=== PATIENT | male | born 1965 | race Hispanic/Latino ===

== ENCOUNTER 2020-10-05 18:06 | Inpatient (IN) | payer OTHER, SELFPAY ==
[~2020-10-05 18:06] MED LIST: Iopamidol-370 76% 500 ML 1 ML ONE
--- NOTE | 2020-10-05 18:38 | CT ---
Head CT without contrast 10/05/2020: Comparison: None HISTORY: Fall, trauma, pain TECHNIQUE: Axial CT imaging at 5 mm intervals from vertex through skull base without contrast FINDINGS: There is extensive multifocal prominent scalp swelling/scalp hematoma at the vertex extendi ng laterally on the right and anteriorly on the left and the right, most prominent in the left frontal region near the vertex. There is no intracranial hemorrhage evident on this examination. No midline shift or mass effect. No displaced calvarial fracture. IMPRESSION: Extensive prominent scalp hematoma with no associated fracture or intracranial hemorrhage . Results called to Dr. Coelho at 6:36 PM 10/05/2020
[2020-10-05 18:39] LABS: Hemoglobin 14.2 g/dL (14.0-18.0); Mean Corpuscular HGB CONC 34.7 g/dL (32.0-36.0); Mean Corpuscular Hemoglobin 31.6 pg (27.0-31.0); Mean Corpuscular Volume 91.2 fL (78.0-98.0); Mean Platelet Volume 6.5 fL (7.4-10.4); Platelet Count 277 thou/uL (130-400); RBC Distribution Width 11.4 % (11.5-14.5); Red Blood Cell (RBC) Count 4.51 mill/uL (4.70-6.10); White Blood Cell (WBC) Count 21.6 thou/uL (4.8-10.8)
[2020-10-05 18:41] LABS: INR-International Normal Ratio 1.1; PTT 23.9 sec (22.9-36.1)
--- NOTE | 2020-10-05 18:50 | CT ---
CT of thecervical spine: 10/05/2020 COMPARISON:None available HISTORY:Fall, trauma, pain TECHNIQUE: Serial axial CT imaging at2.5 mm intervals from theskull base through the lung apices with out contrast. Coronal and sagittal reformatted imaging obtained Findings:There is soft tissue density posterior to the trachea and esophagus within the superior medi astinum, only partially visualized on this examination, suggesting mediastinal hematoma. Partially visualized left clavicle demonstrates a fracture of the left clavicular head. Lobulated soft tissue d ensity is noted in the left lung apex suggesting pleural-based hemorrhage. Bilateral first rib fractures are noted. A medial left second rib fracture is suspected as well. The dens, occipital condyles, C1-2 articulation, craniocervical junction, and atlantoaxial interspace demonstrate no acute findings. No anterolisthesis or retrolisthesis is seen within the cervical spine. There is prominent anterior o steophyte formation at C4-5 and C6-7. There is an obliquely oriented nondisplaced fracture involving the spinous process at the T3 level. There is an obliquely oriented and distracted spinous process fracture at the C7 level and the T1 level with 1.8 cm and 1.6 cm of posterior distraction respectively. Imaged portions of the paranasal sinuses and mastoid air cells appear well-aerated. The C1 ring appea rs intact. There is mild superior endplate irregularity involving C7 which could signify acute fracture. There is a mild anterior wedge compression fracture of the T2 vertebral body. Impression:Findings suggesting a mediastinal hematoma. Dedicated chest CT advised. There are fractures involving the spinous processes at the C7, T1, and T3 levels. There is a question able mild superior endplate fracture of C7 and there is an anterior wedge compression fracture with mild loss of vertebral body height anteriorly at the T2 level. There is a fracture of the left clavicular head as well as bilateral first rib fractures and a left s econd rib fracture. Results called to Dr. Coelho at 6:47 PM 10/05/2020
--- NOTE | 2020-10-05 18:53 | CT ---
CT of thefacial bones: 10/05/2020 COMPARISON:None available HISTORY:Injury, trauma, pain TECHNIQUE: Serial axial CT imaging at2.5 mm intervals from thesupraorbital region through the mandibl e without contrast. Coronal and sagittal reformatted imaging obtained Findings:There is degenerative change at the atlantoaxial interspace. There is corticated osseous fra gmentation at the tip of the clivus, likely related to degenerative change. There is extensive multifocal superior scalp swelling, incompletely imaged on this examination. The nasal bones, zygomatic arches, and pterygoid plates appear intact. The temporomandibular joints and the mandible demonstrate no acute findings. The orbital floor and the medial orbital wall appears intact bilaterally. No acute maxillofacial bone fracture is seen. Impression:No maxillofacial bone fracture noted. Results called to Dr. Coelho at 6:50 PM 10/05/2020
[2020-10-05 18:54] LABS: ALT (SGPT) 27 U/L (8-55); AST (SGOT) 37 U/L (5-34); Albumin 3.7 g/dL (3.5-5.0); Alkaline Phosphatase 88 U/L (40-110); Anion Gap 16 mmol/L (10-20); BUN (Urea Nitrogen) 15 mg/dL (8.4-25.7); Bilirubin, Total 0.5 mg/dL (0.2-1.2); Calc. Creatinine Clearance 0 mL/min (70-130); Calcium 8.2 mg/dL (7.8-10.44); Carbon Dioxide 21 mmol/L (22-29); Chloride 106 mmol/L (98-107); Estimated GFR-MDRD 83; Glucose 143 mg/dL (70-105); Lipase 24 U/L (8-78); Potassium 3.5 mmol/L (3.5-5.1); Protein, Total 6.7 g/dL (6.0-8.3); Sodium 139 mmol/L (136-145)
[2020-10-05 19:02] LABS: Band 29 % (5-11); Eosinophils 3 % (0-10); Lymphocytes 5 % (21-51); MDiff Complete? YES; Monocytes 8 % (0-10); Neutrophil 51 % (42-75); Platelet Morphology Comment Appears Adequate; RBC Morphology Normal; Reactive Lymphocytes 4 % (0-10)
--- NOTE | 2020-10-05 19:07 | CT ---
CT angiogram of the neck: 10/05/2020 COMPARISON: None HISTORY: Injury, trauma, pain TECHNIQUE: Axial CT imaging at 1.25 mm intervals from the lung apices through the skull base with IV contrast using a CT angiogram protocol. Coronal and sagittal 3-D reformatted imaging obtained. FINDINGS: The visualized lung apices demonstrate lobulated pleural-based density bilaterally suggesti ng pleural-based hemorrhage, left greater than right. There is a mildly displaced comminuted manubrial fracture with hematoma anterior and posterior to the fractured manubrium. Rib fractures on the right include the medial first rib and the anterolateral aspect of the third rib . There is a medial left first rib fracture. A left subtle second rib fracture is suspected. There are distracted fractures involving the C7 and T1 spinous processes. Incompletely evaluated spin ous process fractures are noted at the T3 and T4 levels. There is a comminuted fracture involving the T5 vertebral body with acute bilateral fractures of the pars intraarticularis. There is posterior osteophyte formation at the T5-6 level. A comminuted T6 fracture is noted, not fully visualized on this examination. There is extensive associated posterior mediastinal hematoma from the axial level of the T6 vertebral body through the axial level of the thoracic inlet. The visualized portions of the ascending aorta, the aortic arch, and the imaged portions of the desce nding thoracic aorta demonstrate no evidence for acute arterial injury. The origin of the left subclavian artery, left common carotid artery, innominate artery, right subclavian artery, and right common carotid artery appear unremarkable. Bilateral vertebral arteries are patent. On the basis of NASCET criteria there is no hemodynamically significant stenosis involving the caroti d or vertebral system on either side. The retroantral fat, the parapharyngeal fat, the parotid glands, and the submandibular glands appear grossly unremarkable. Region of the tonsillar pillars, epiglottis and preepiglottic fat, hyoid bone, thyroid cartilage, cri coid cartilage, and thyroid gland appear unremarkable. There is a comminuted fracture involving the head of the clavicle on the left. Mild superior endplate irregularity at C7 could represent a subtle fracture. Anterior wedge compression fracture with minimal loss of vertebral body heights suspected at the T2 level. IMPRESSION: Extensive spinal fractures which include a probable superior endplate C7 fracture, multip le spinous process fractures including C7, T1, T3, T4, as well as vertebral body fractures at T1, T5, and T6. The T5 fractures extend into the bilateral pars intraarticularis. There are rib fractures seen bilaterally as well as a manubrial fracture and a left clavicle fracture. Dedicated chest CT is advised. There is extensive posterior mediastinal hematoma. No acute arterial abnormality is seen within the neck. Results were called to Dr. Coelho at 7:00 PM 10/05/2020
[2020-10-05] MEDS ORDERED: Fentanyl 100 MCG/2 ML VIAL ONE (19:08)
[2020-10-05] MEDS ORDERED: Ondansetron PF 4 MG/2 ML Vial ONE (19:08)
[2020-10-05] MEDS ORDERED: Boostrix 0.5 ML (Tdap) VIAL ONE (19:08)
--- NOTE | 2020-10-05 19:40 | RAD ---
Frontal radiograph pelvis: 10/05/2020 COMPARISON: None HISTORY: Fall, trauma, pain FINDINGS: Moderate degenerative changes seen involving bilateral hips, left greater than right. The p elvic ring appears intact. The femoral heads project normally over the respective acetabulum. There is no widening of the sacroiliac joints or the pubic symphysis. No displaced fracture is appreciated. Osseous structures of the pelvis are better assessed on dedicat ed CT examination also performed 10/05/2020 IMPRESSION: No displaced fracture seen.
--- NOTE | 2020-10-05 19:45 | RAD ---
Portable frontal chest radiograph: 10/05/2020 COMPARISON: CT of 10/05/2020 HISTORY: Injury, trauma, pain FINDINGS: There is a fracture involving the head of the clavicle on the left. Bilateral first rib fra ctures are noted. There is lobulated soft tissue density in the left lung apex consistent with hematoma. Widening of the mediastinum is noted, consistent with mediastinal hematoma. Multiple thorac ic spine fractures are present, difficult to accurately evaluate on this examination. Please see CT examination of the chest for further assessment. IMPRESSION: Widened mediastinum with evidence of mediastinal hematoma. Pleural-based hemorrhage in th e left lung apex. Left clavicular head fracture and bilateral rib fractures as detailed above. There are numerous spinal fractures present, difficult to appreciate on this examination. Please refe r to CT examination also performed 10/05/2020
--- NOTE | 2020-10-05 19:45 | CT ---
CT CHEST WITH IV CONTRAST CT ABDOMEN AND PELVIS WITH IV CONTRAST CT THORACIC SPINE NONCONTRAST CT LUMBAR SPINE NONCONTRAST 10/05/20 HISTORY: Fall. Chest injury. Abdomen injury. Back injury. FINDINGS: Very tiny amount of pleural gas at the far anterior aspect of each hemithorax. There is mild atelecta sis and contusion at the dependent portion of each lung and minimal left pleural fluid. Vascular stru ctures are intact. Solid organs of the abdomen are intact. Urinary bladder is unremarkable. Nondisplaced fractures involve the sternomanubrium and sternal body with a small amount of heterogene ous fluid posterior to the sternum consistent with a small anterior mediastinal hematoma. Large area of heterogeneous fluid density surrounding and anterior to the mid thoracic vertebral fractures has t he appearance of a posterior mediastinal hematoma that effaces the posterior aspect of the esophagus. It is 6.0 cm length x 5.9 cm width x 2.1 cm depth. There is prominent dilatation of the right renal collecting system and pelvis with decompression of t he ureter. Thinning of the renal cortex. Two stones at the superior pole dilated calyx are each 0.8 c m diameter. This has the appearance of a chronic UPJ obstruction. Obstructing stone not evident. Burst fracture of the T5 vertebral body is present with multiple planes. There is extension through t he posterior elements, primarily the superior facets, with minimal anterior translation. Prominent po sterior osteophyte/disc complex is also present at the T5-6 level. There is slight compromise of the central spinal canal by approximately 30%. Burst fracture of the T6 vertebral body is also present wi th loss of height by approximately 10%. This fracture does not extend into the posterior elements. Di splaced spinous process fractures also involve C7, T1, T3, and T4. Nondisplaced comminuted fracture of the left clavicular head is present. Fractures involve the medial bases of each first rib. Fractures also involve the posterolateral aspect of right ribs 3 and 4 and the anterolateral aspect of right ribs 3 and 4. Large osteoma projects anteriorly from right rib 7. M inimally displaced fractures involve the anterolateral aspect of left ribs 5 and 6. Minimally displac ed fractures of the left transverse process of T5 and each transverse process of T6. IMPRESSION: Unstable burst fractures of T5 and T6 with mild kyphotic angulation indicative of instability. Extens ion of the T5 fracture through the superior facets with mild displacement. Mild compromise of the giuseppe tral spinal canal. Extensive additional fractures of spinous processes, sternum, left clavicle, and r ibs as detailed above. Tiny bilateral pneumothoraces. No other unstable spinal injury is apparent. No acute intra-abdominal injury is apparent. Right renal stones with chronic appearing right hydronephrosis, possibly related to chronic UPJ obstr uction. Anterior and posterior mediastinal hematomas associated with the sternal and spinal fractures as deta iled above. Findings were discussed with Dr. Coelho in the Emergency Department at 1908 hours. Code CR POS: BST
--- NOTE | 2020-10-05 21:12 | HP ---
REQUESTING PHYSICIAN: Dr. Coelho. ATTENDING SURGEON: Dr. Monsalve. CONSULTATIONS: Neurosurgery, Dr. Pierce. HISTORY OF PRESENT ILLNESS: The patient is a 55-year-old man, who was brought here by air ambulance after falling [place] onto his head. It is unclear if he had a loss of consciousness, but bystanders and the patient report that he was unable to move his legs initially. By the time he reached the emergency department, he was moving all 4 extremities, upper extremities greater than lower extremities. The patient denied nausea or any syncopal events. The patient was a level 2 trauma activation. He underwent evaluation and examination, was noted to have multiple compression fractures of his spinal column. The patient was evaluated in the emergency department by Gabi Hung of Neurosurgery. She has ordered MRI to further evaluate his injuries. The patient has maintained stable vitals and Waldorf Coma Scale of 15. ALLERGIES: NONE. CURRENT MEDICATIONS: None. PAST MEDICAL HISTORY: None. PAST SURGICAL HISTORY: None. 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 He denies drug, tobacco, or alcohol use. REVIEW OF SYSTEMS: 10-point review of systems is negative as otherwise stated. PHYSICAL EXAMINATION: VITAL SIGNS: Blood pressure 113/69, heart rate 82, respirations 24, oxygen saturation is 95% on 2 L via nasal cannula, and temperature is 97.6. GENERAL: The patient is resting comfortably in bed. He is awake, conversant, appropriate. Bambi Coma Scale is 15. HEENT: The patient has contusion noted to the left forehead and occiput with abrasions noted. Eyes, extraocular motion intact. PERRLA bilaterally. Ears are atraumatic without discharge. Nose is atraumatic without discharge. Oropharynx is clear. NECK: Tender to the midline from C5-T1. He is immobilized in a pre-hospital collar that is being exchanged for an Underwood collar. His trachea is midline. No JVD. CHEST: Clear to auscultation with good inspiratory and expiratory effort, but he does complain of mid back pain with deep inspiration. HEART: Regular rate and rhythm. ABDOMEN: Soft, flat, nontender with active bowel sounds. PELVIS: Stable. EXTREMITIES: Neurovascularly intact x4. The patient has abrasions noted to the left upper extremity. BACK: By report is tender to palpation from approximately T1 through T8 in the midline. LABORATORY FINDINGS: White blood cell count 21.6, hemoglobin 14.2, hematocrit 41.1, platelets 277. Sodium 139, potassium 3.5, chloride 106, CO2 of 21, BUN 15, creatinine 0.94, glucose 143. Lactic acid 2.5. LFTs are unremarkable. Lipase 24. INR 1.1. RADIOGRAPHS: CT of the brain without contrast show extensive prominent scalp hematoma with no associated fracture or intracranial hemorrhage. CT of the C-spine without contrast shows findings suggestive of a mediastinal hematoma. Fractures involving the spinous process of C7, T1 and T3. Mild endplate fracture of C7 and T2. There is also noted to be a fracture of the left clavicular head as well as bilateral 1st ribs and left 2nd rib fractures. CT of the facial bones without contrast shows no maxillofacial bone fractures. CTA of the neck again demonstrates the spinous process fractures, the previous rib fractures, manubrial fracture, left clavicle fracture, mediastinal hematoma, T5 burst fracture. There are no acute arterial abnormality seen within the neck. CT of the chest, abdomen, and pelvis show an unstable burst fracture of T5 and T6 with mild kyphotic angulation indicative of instability. There are tiny bilateral pneumothoraces and again noted the mediastinal hematoma. AP pelvis shows no displaced fracture. ASSESSMENT AND PLAN: 1. Status post fall from roof, level 2 trauma activation. 2. Spinous process fractures of C7, T1, and T3. 3. Compression fractures of C7 and T2. 4. Bilateral pneumothoraces. 5. Bilateral 1st rib fractures. 6. Left clavicular head fracture. 7. Burst fractures of T5 and T6. 8. Multiple contusions and abrasions. PLAN: Plan will be to admit the patient to the [facility] for close observation. He will undergo MRI. This evening, he will be fitted with a [employer] brace per Neurosurgery. We will keep him n.p.o. while he is laying flat. We will continue spinal precautions until he is fitted with his brace. He will have pain control, pulmonary toilet, gastritis and mechanical VTE prophylaxis. Repeat labs in the morning. Begin physical and occupational therapy. The evaluation, examination, laboratory, and radiographic findings will be discussed with Dr. Monsalve after this dictation. Job ID: [id number]
[2020-10-05] MEDS ORDERED: Dextrose 50% Abboject 50 ML SYRINGE SLOW IVP PRN (21:37)
[2020-10-05] MEDS ORDERED: Ondansetron ODT 4 MG TAB PO PRN (21:37)
[2020-10-05] MEDS ORDERED: Dextrose 5% in Water 1,000 ML IV PRN (21:37)
[2020-10-05] MEDS ORDERED: traMADol HCl 50 MG TAB PO PRN ×2 (21:37)
[2020-10-05] MEDS ORDERED: Ondansetron PF 4 MG/2 ML Vial IVP PRN (21:37)
[2020-10-05] MEDS: Morphine 2 MG/ML VIAL SLOW IVP PRN (22:03)
--- NOTE | 2020-10-05 23:37 | MRI ---
MRI of thecervical spine: 10/05/2020 COMPARISON:None available HISTORY:Injury, trauma, pain TECHNIQUE: Multiplanar multisequence MR imaging of thecervical spine without contrast Findings:The sagittal STIR imaging demonstrates abnormal increased T2 signal involving the posterior paraspinal soft tissues between the spinous processes at the C1-2 level, and the C2-3 level, consistent with ligamentous disruption. Similarly, posterior to the spinous processes is extensive ab normal increased T2 signal throughout the cervical spine consistent with extensive ligamentous injury and extensive posterior muscle tear/disruption from the axial level of the occiput to the axia l level of the cervicothoracic junction. There are fracture deformities involving the C7 and T1 spinous processes. There is abnormal increased STIR signal within the prevertebral space anterior to the C1, C2, and C3 vertebral bodies as well as anterior to the C7, T1, T2, and T3 vertebral bodies. Prevertebral soft tissue increased STIR signal mentioned above suggest ligamentous disruption. This c ould be the result of fluid tracking up from the thoracic region. There is no definitive evidence for an acute fracture involving the C2-C7 vertebral bodies. There is vague increased T2 signal within the T1, T2, and T3 vertebral body suggesting areas of fracture. Fracture deformities are better assessed on recent CT. C2-3: No significant central canal or neural foraminal stenosis. C3-4: There is disc space narrowing with disc desiccation and mild disc bulge. There is mild central canal stenosis. No significant neural foraminal stenosis. C4-5: There is disc space narrowing and mild posterior osteophyte. Anterior osteophyte is noted. No s ignificant central canal or neural foraminal stenosis. C5-6: There is disc space narrowing with disc desiccation. There is mild disc bulge with a small cent ral disc protrusion causing mild central canal stenosis. No significant neural foraminal stenosis. C6-7: There is disc space narrowing with disc desiccation. There is anterior osteophyte formation. No significant neural foraminal stenosis or central canal stenosis. C7-T1: There is disc space narrowing with disc desiccation and disc bulge causing at least mild centr al canal stenosis. Mild bilateral neural foraminal stenosis. Within the cervical cord there is no focal area of abnormal signal intensity. IMPRESSION: Fracture deformities of the cervical and thoracic spine as detailed above, better assesse d on recent CT exam. No focal area of abnormal signal intensity is identified within the cervical cord. There is extensive severe posterior ligamentous injury from the occiput through the upper thora cic spine with extensive posterior muscle injury. There is prominent prevertebral fluid suggesting ligamentous injury, a degree of which is likely tracking up from the thoracic spine.
--- NOTE | 2020-10-05 23:51 | MRI ---
MRI of the thoracic spine: 10/05/2020 HISTORY: Injury, trauma, pain TECHNIQUE: Multiplanar multisequence MR imaging of the thoracic spine obtained without contrast FINDINGS: The sagittal STIR imaging demonstrates extensive posterior ligamentous injury involving the interspinous ligaments and the posterior paraspinal musculature from the C6-7 level through the T7 level. There are patchy areas of increased STIR signal within the T1, T2, T3, and T4 vertebral bodies consistent with fractures with out significant loss of vertebral body height. Comminuted fractures with a mild to moderate degree of vertebral body height loss are noted at T5 and T6, better assessed on recent CT examination. Fractures are seen involving the spinous processes at the C7 level, T1 level, T3 level, T4 level, and T5 level. Fractures involve bilateral pars interarticularis at T5. Please refer to the CT examination for better assessment of the fracture deformities. Hydronephrosis with associated calcifications are seen involving the right kidney, better assessed on recent CT as well. Extensive posterior mediastinal hematoma is noted from the thoracic inlet through the axial level of the T6 vertebral body. Pleural-based hemorrhage noted within the left lung apex. T1-2: Mild bilateral neural foraminal stenosis and mild central canal stenosis. T2-3: No significant central canal or neural foraminal stenosis T3-4: No significant central canal or neural foraminal stenosis T4-5: Facet hypertrophy leads to bilateral neural foraminal stenosis. There is mild disc space narrow ing with no significant central canal stenosis. T5-6: There is disc space narrowing with prominent posterior osteophyte. Severe fracture deformities are noted involving the T5 and T6 vertebral bodies. Severe central canal stenosis is noted. There is significant bilateral neural foraminal stenosis. T6-7: Mild bilateral neural foraminal stenosis and central canal stenosis T7-8: Anterior osteophyte formation. No significant central canal or neural foraminal stenosis T8-9: No significant central canal or neural foraminal stenosis T9-10: No significant central canal or neural foraminal stenosis T10-11: No significant central canal or neural foraminal stenosis T11-12: No significant central canal or neural foraminal stenosis T12-L1: No significant central canal or neural foraminal stenosis. Bilateral pleural effusions noted. There is a focal area of abnormal increased T2 signal intensity within the thoracic cord at the T5-6 level secondary to acute cord contusion. No obvious hemorrhage is seen on sagittal gradient echo imaging. IMPRESSION: Extensive fracture deformities involving the thoracic spine, most severe at the T5 and T6 levels, better assessed on recent CT. There is severe central canal stenosis at the T5-6 level with a focal area of increased T2 signal within the thoracic cord consistent with an acute thoracic c ord injury. Extensive posterior ligamentous and muscular injury.
--- NOTE | 2020-10-06 00:08 | MRI ---
MR the lumbar spine without contrast: 10/06/2020 History: Injury, trauma, pain COMPARISON: None. TECHNIQUE: Multiplanar multisequence MR images were obtained of lumbar spine without IV contrast FINDINGS: On the basis of 5 lumbar type vertebral bodies, conus medullaris terminates at uyxP50-L5 level. Sagittal STIR imaging demonstrates no focal area of osseous marrow edema. T12-L1:Intervertebral disc height and signal intensity appears within normal limits with no significa nt central canal or neural foraminal stenosis L1-2:Intervertebral disc height and signal intensity within normal limits. No significant central can al or neural foraminal stenosis. L2-3:Mild bilateral facet hypertrophy. No significant central canal or neural foraminal stenosis. L3-4:Minimal disc bulge with very small right paracentral disc protrusion. Mild anterior osteophyte f ormation. Disc desiccation. No significant central canal or neural foraminal stenosis. L4-5:There is disc space narrowing and disc desiccation with disc bulge. Mild bilateral facet hypertr ophy. Mild bilateral neural foraminal stenosis. Mild central canal stenosis. L5-S1:There is a central annular tear. No significant central canal stenosis. Mild bilateral facet hy pertrophy with no significant neural foraminal stenosis. Image retroperitoneal structures demonstrateno acute findings. The urinary bladder is distended.. IMPRESSION: Degenerative changes within the lumbar spine as detailed above. No evidence for acute lumbar spine fr acture.
[2020-10-06] MEDS: Sodium Chloride 0.9% 1,000 ML IV SCH ×2 (00:10→09:53)
--- NOTE | 2020-10-06 00:17 | CON ---
DATE OF CONSULTATION: 10/05/2020 HISTORY OF PRESENT ILLNESS: The patient is a 55-year-old male, who presented per [facility] after he fell off a ladder while attempting to clean the gutters on his one-story home. Report per EMS was that he initially lost sensation feeling to both his lower extremities. By the time he had arrived to the emergency department, he was wiggling his toes a little bit and reports he had normal sensation. He was complaining of some pain to the neck. Trauma scans were done which were notable for multiple cervical and thoracic fractures. He had spinous process fractures at C7, T1, T3, and T4 and mild compression fracture at C7, a T1 vertebral body fracture and a T5 and T6 burst fracture. I visited with the patient in the ER and during his course here, he began to have improvement in his lower leg mobility. He began moving the left leg without any difficulty and only had some remaining right proximal leg weakness which was mild. He continued to report normal sensation and had good strength and sensation in bilateral upper extremities. He had several other injuries including multiple rib fractures as well as bilateral small pneumothoraces. He was evaluated by the Trauma Team as well. PAST MEDICAL HISTORY: Patient denied any past medical history or past surgical history. SOCIAL HISTORY: He lives at home. He does not smoke, drink, or use any drugs. REVIEW OF SYSTEMS: Per HPI. PHYSICAL EXAMINATION: VITAL SIGNS: BP is 113/69, pulse is 82, he is 95% on 2 L, temperature is 97.6. CONSTITUTIONAL: Awake, alert, and oriented x3, in no acute distress. HEENT: Head, he has hematoma along the right side of the scalp. There is a small contusion over the right brow and forehead. Eyes, PERRLA. Extraocular movements intact. ENT, pink, intact, moist. He has normal voice. NECK: He has some tenderness over the lower cervical spine and we transitioned him to an [place] collar. RESPIRATORY: Symmetric chest expansion. No evidence of dyspnea. CARDIOVASCULAR: Regular rate and rhythm. MUSCULOSKELETAL: No obvious deformity. In the upper extremities, he has free active range of motion of all extremities. No focal motor weakness. Symmetric pulses. In the lower extremities, he had good strength and range of motion in the left lower extremity. Some slight proximal leg weakness in the right lower extremity. Sensation intact to light touch. Symmetric pulses. NEUROLOGIC: A and O x4. Some weakness noticed in the right lower extremity as noted above. ASSESSMENT AND PLAN: This is a 55-year-old male with a fall approximately one story height with multiple cervical and thoracic fractures, who has had initially bilateral leg weakness and sensation changes, but this is improved and now only some proximal right leg weakness. We will go ahead and move forward with MRI of the CT and L-spine to assess further. He has been admitted by the Trauma Team. He should be kept on strict spinal precautions until a SKIN WASHER brace has been fitted by [facility]. I will follow his new imaging closely and discuss this plan with Dr. Pierce. Job ID: [id number]
[2020-10-06] MEDS: Morphine 2 MG/ML VIAL SLOW IVP PRN (03:06)
[2020-10-06] MEDS: Ibuprofen 800 MG TAB PO SCH ×4 (03:08→20:56)
[2020-10-06] MEDS: Famotidine 20 MG TAB PO SCH ×3 (03:08→20:56)
[2020-10-06] MEDS: Acetaminophen 500 MG TAB PO SCH ×5 (03:08→20:56)
[2020-10-06 03:29] LABS: SARS-CoV-2 MS2 Positive; SARS-CoV-2 N Gene Negative; SARS-CoV-2 S Gene Negative; SARS-CoV-2 by NAA Not Detected (NotDetected); SARS-CoV-2 orf1ab Negative
[2020-10-06 06:46] LABS: #Monocytes 0.9 thou/uL (0.11-0.59); #Neutrophils 12.8 thou/uL (1.40-6.50); %Basophils 0.1 % (0.0-1.0); %Eosinophils 0.1 % (0.0-10.0); %Monocytes 6.1 % (0.0-10.0); %Neutrophils 86.6 % (42.0-75.0); Hemoglobin 12.8 g/dL (14.0-18.0); Mean Corpuscular HGB CONC 35.2 g/dL (32.0-36.0); Mean Corpuscular Hemoglobin 32.2 pg (27.0-31.0); Mean Corpuscular Volume 91.4 fL (78.0-98.0); Mean Platelet Volume 6.7 fL (7.4-10.4); Platelet Count 247 thou/uL (130-400); RBC Distribution Width 11.6 % (11.5-14.5); Red Blood Cell (RBC) Count 3.98 mill/uL (4.70-6.10); White Blood Cell (WBC) Count 14.7 thou/uL (4.8-10.8)
[2020-10-06 06:56] LABS: Phosphorus 4.1 mg/dL (2.3-4.7)
[2020-10-06 06:58] LABS: Anion Gap 16 mmol/L (10-20); BUN (Urea Nitrogen) 20 mg/dL (8.4-25.7); Calc. Creatinine Clearance 82 mL/min (70-130); Calcium 8.2 mg/dL (7.8-10.44); Carbon Dioxide 22 mmol/L (22-29); Chloride 106 mmol/L (98-107); Estimated GFR-MDRD 71; Glucose 201 mg/dL (70-105); Magnesium 2.3 mg/dL (1.6-2.6); Potassium 4.2 mmol/L (3.5-5.1); Sodium 140 mmol/L (136-145)
--- NOTE | 2020-10-06 08:31 | RAD ---
Chest one view HISTORY: Trauma. Follow-up. COMPARISON: CT 10/05/2020. FINDINGS: Cardiac silhouette is magnified by projection. Pulmonary vasculature are within normal limi ts. Mediastinum is midline. Slight widening of the upper mediastinum may be related to hematomas on recen t CT. No lobar consolidation or evidence of pneumothorax. Fractures of the left clavicular head and ribs correlate with findings on recent CT. Thoracic spine b urst fractures not well visualized. Metallic density within the left cardiac margin could represent extrinsic artifact. Density over the right upper quadrant may represent: Content. IMPRESSION : Stable posttraumatic findings of the chest. No evidence of pneumothorax.
--- NOTE | 2020-10-06 09:55 | CON ---
DATE OF CONSULTATION: 10/06/2020 HISTORY OF PRESENT ILLNESS: The patient is a 55-year-old male who fell one [place] onto his head and states that he immediately after the injury was unable to move his legs, but by the time he reached the emergency room, he was able to move all four extremities. The patient had x-rays and CAT scans performed. He has burst fracture and a thoracic spine at T5 and T6, has compression fractures at C7 and T1, spinous process fractures of C7, T1 and T3. Bilateral pneumothorax, bilateral first rib fractures, left proximal clavicle fracture with sternal fracture. I was consulted for evaluation and recommended treatment for the proximal left clavicle fracture. PAST MEDICAL HISTORY: None. ALLERGIES: NONE. CURRENT MEDICATIONS: None. PAST SURGICAL HISTORY: None. 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 He denies drug, alcohol, or tobacco use. PHYSICAL EXAMINATION: Patient has tenderness in the proximal left clavicular and sternal region. Upper extremities are neurovascularly intact. I reviewed the x-rays and the patient has nondisplaced fractures of the proximal left clavicle and nondisplaced fracture of the sternum. PLAN: No surgical intervention is needed for these fractures. They will just be allowed to heal. I will be happy to follow the patient as indicated. Job ID: [id number]
[2020-10-06] MEDS ORDERED: Dexamethasone 10 MG/ML VIAL SLOW IVP SCH (10:30)
--- NOTE | 2020-10-06 10:55 | PRG ---
DATE OF SERVICE: 10/06/2020 The patient seen and examined. I agree with Gabi Hung's evaluation on 10/05/2020. The patient is a 55-year-old man, who fell from a ladder. He immediately complained of mid back pain as well as inability to move his legs. The leg function recovered fairly rapidly. Currently, he is alert and interactive. His left leg strength is normal and sensation subjectively normal. In the right leg, he has reasonably good strength, although it takes some slightly longer to initiate. He reports a subjective diminishment of sensation in the right leg. CT and MRI of the cervical and thoracic spines were reviewed. He has fairly extensive injuries. He has multiple cervical thoracic spinous process fractures and fairly dramatic ligamentous disruption posteriorly. He has some preexisting cervical stenosis. In the thoracic spine, he has meaningful T5 and T6 burst fractures. There is a subtle amount of canal compromise anteriorly from predominantly disk material at T5-T6, although there is no meaningful posterior compression here. There is some evidence of T2 signal in the cord suggesting contusion at this level. IMPRESSION AND PLAN: The patient has fairly extensive cervical and thoracic injuries. He may have neurologic deficit in the right leg related to a cord contusion at T5-T6. I am recommending nonsurgical management of his fractures. We will treat him with cervical thoracic orthosis that needs to be on at all times. He can safely be mobilized once in the brace from a neurosurgical perspective. We will give him one dose of Decadron for the cord contusion and do anticipate good recovery from this over time. Job ID: [id number]
[2020-10-06] MEDS ORDERED: Morphine 2 MG/ML VIAL SLOW IVP PRN (11:38)
[2020-10-06] MEDS: Gabapentin 300 MG CAP PO SCH ×2 (12:09→20:56)
[2020-10-06] MEDS: traMADol HCl 50 MG TAB PO SCH ×3 (12:09→23:39)
--- NOTE | 2020-10-06 22:08 | PRG ---
DATE OF SERVICE: 10/06/2020 SUBJECTIVE: The patient was seen during morning rounds. Awake, alert, in no distress. The patient's pain is moderate in his ribs and sternum. The patient is fitted in a well-fitted CTLSO brace. The patient is only able to pull 500 mL with his incentive spirometer. The patient's daughter is currently at bedside, assisting and encouraging the patient. OBJECTIVE: VITAL SIGNS: Temperature 98.0, pulse 86, respirations 16, SpO2 of 97% on 2 L nasal cannula, blood pressure 122/81. GENERAL: Well-appearing, middle-aged male, awake, alert, in moderate distress due to pain. HEENT: Contusion to left forehead and occiput with hematoma. Pupils are equal bilateral. Mucous membranes are dry. NECK: Cervical collar in place. Trachea in midline. No JVD. RESPIRATORY: Good inspiratory and expiratory effort, increased pain with deep breaths and unable to deep cough due to pain. CARDIAC: Regular rate, regular rhythm. ABDOMEN: Soft, nontender, nondistended. EXTREMITIES: Neurovascularly intact x4. Abrasion in left upper extremity. NEUROLOGIC: GCS 15. Right leg slightly weaker. Difficulty lifting right arm at the shoulder. Good range of motion at the elbow and good strength. LABORATORY DATA: WBC 14.7, RBC 3.98, hemoglobin 12.8, hematocrit 36.4. Sodium 140, potassium 4.2, BUN 20, creatinine 1.07, estimated GFR 71, glucose 201, phosphorus 4.1, magnesium 2.3. DIAGNOSTIC DATA: Chest x-ray, impression, stable post traumatic findings of the chest, no evidence of pneumothorax. Slight widening of the upper mediastinum may be related to hematoma on recent CT. ASSESSMENT: 1. Status post fall from roof, level 2 trauma activation. 2. Spinous process fractures of C7, T1, and T3. 3. Compression fracture of C7 and T2. 4. Cord contusion at T5-T6 and T2. 5. Bilateral pneumothoraces, resolved. 6. Bilateral first rib fractures. 7. Left clavicle fracture, nonoperative. 8. Burst fractures of T5 and T6. 9. Multiple contusions and abrasions. PLAN: Supportive care and pain regimen. CTLSO brace per Neurosurgery at all times. Aggressive pulmonary toilet with the use of incentive spirometer and deep coughing every hour while awake. Sling to left upper extremity for comfort. Physical and occupational therapy. The plan was discussed with the patient, the patient's daughter at bedside, who agree. Job ID: [id number]
[2020-10-07] MEDS: Gabapentin 300 MG CAP PO SCH ×3 (04:38→19:58)
[2020-10-07] MEDS: Acetaminophen 500 MG TAB PO SCH ×4 (04:38→19:57)
[2020-10-07] MEDS: Ibuprofen 800 MG TAB PO SCH ×3 (04:39→19:57)
[2020-10-07] MEDS: traMADol HCl 50 MG TAB PO SCH ×4 (04:45→23:30)
[2020-10-07 05:54] LABS: #Lymphocytes 1.2 thou/uL (1.20-3.40); #Monocytes 1.3 thou/uL (0.11-0.59); #Neutrophils 14.2 thou/uL (1.40-6.50); %Eosinophils 0.1 % (0.0-10.0); %Lymphocytes 7.1 % (21.0-51.0); %Monocytes 7.7 % (0.0-10.0); Mean Corpuscular HGB CONC 35.8 g/dL (32.0-36.0); Mean Corpuscular Volume 92.3 fL (78.0-98.0); Mean Platelet Volume 6.6 fL (7.4-10.4); Platelet Count 170 thou/uL (130-400); RBC Distribution Width 11.3 % (11.5-14.5); Red Blood Cell (RBC) Count 3.03 mill/uL (4.70-6.10); White Blood Cell (WBC) Count 16.7 thou/uL (4.8-10.8)
[2020-10-07 06:13] LABS: Anion Gap 14 mmol/L (10-20); BUN (Urea Nitrogen) 20 mg/dL (8.4-25.7); Calc. Creatinine Clearance 108 mL/min (70-130); Calcium 7.7 mg/dL (7.8-10.44); Carbon Dioxide 21 mmol/L (22-29); Chloride 102 mmol/L (98-107); Estimated GFR-MDRD Greater than 90; Glucose 131 mg/dL (70-105); Magnesium 2.2 mg/dL (1.6-2.6); Phosphorus 2.5 mg/dL (2.3-4.7); Potassium 4.3 mmol/L (3.5-5.1); Sodium 133 mmol/L (136-145)
[2020-10-07] MEDS: Famotidine 20 MG TAB PO SCH ×2 (08:30→19:57)
--- NOTE | 2020-10-07 08:40 | PRG ---
DATE OF SERVICE: 10/07/2020 SUBJECTIVE: The patient is now 2 days out from his fall from a roof with multiple cervical and thoracic spinal fractures. 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 He reports he has had some improvement in his right leg strength. OBJECTIVE: GENERAL: On exam today, he is resting comfortably in the bed. HEENT: He has some significant left-sided facial swelling and his eye is now swollen shut. EXTREMITIES: He is moving all fours easily in the bed. No focal motor weakness is appreciated. His sensation is intact to light touch. PRINTING MACHINE OPERATOR brace appears to be fitting appropriately. PLAN: We will continue to plan conservative treatment with PRINTING MACHINE OPERATOR bracing at all times for his spinal fractures. He can continue to mobilize but may benefit from inpatient rehabilitation at some point. We will continue to follow along. Job ID: [id number]
[2020-10-08] MEDS ORDERED: diphenhydrAMINE 50 MG/ML VIAL IVP PRN (00:29)
[2020-10-08] MEDS ORDERED: diphenhydrAMINE 50 MG/ML VIAL ONE (00:33)
[2020-10-08] MEDS ORDERED: Acetaminophen/Codeine 30-300mg Tablet PO PRN (00:45)
[2020-10-08] MEDS ORDERED: Hydrocortisone Sod Succ/PF 100 mg/2 ml Vial IVP SCH ×2 (03:00→09:00)
[2020-10-08] MEDS ORDERED: Dexamethasone 20 MG/5 ML VIAL SLOW IVP SCH (03:00)
[2020-10-08] MEDS: diphenhydrAMINE 50 MG/ML VIAL IVP PRN ×2 (03:05→05:12)
[2020-10-08] MEDS ORDERED: Sodium Chloride 0.9% 1,000 ML IV SCH (03:30)
--- NOTE | 2020-10-08 03:51 | PRG ---
DATE OF SERVICE: 10/07/2020 SUBJECTIVE: The patient was seen this evening during rounds. He was lying on his right side. The patient has some facial swelling with worsening upper lip swelling. I did contact the respiratory therapist, who evaluated the patient yesterday, as I did not see the patient yesterday and RT did report that this facial swelling is worse than before. He does have some bruising to his face and I think that there is an element of contusion with associated swelling, but I am concerned that he is having an allergic reaction, especially with upper lip swelling. The patient denies scratchy throat, shortness of breath, itching, and difficulty swallowing. I did discuss with him that he is likely having an allergic reaction to some medication, currently on his MAR. There were no changes to his medications today. He has not received a morphine. Previously, he received fentanyl with no reaction. He has taken Tylenol and ibuprofen in the past without any issues. The only medications that I can see currently that could possibly cause this allergic reaction may be gabapentin and tramadol, and such, I have discontinued those and placed him on Tylenol No. 3 for pain control. He is also to receive 50 mg of IV diphenhydramine and close reassessment by nursing. OBJECTIVE: VITAL SIGNS: Temperature 98.4, pulse 107, respirations 12, oxygen saturation 97% on 2 L nasal cannula, blood pressure 111/69. GENERAL: A well-appearing, middle-aged male, lying in bed with no signs of acute distress. PULMONARY: Equal chest rise and fall. Clear breath sounds bilaterally. No signs of acute respiratory distress. CARDIAC: Tachycardic, but regular rhythm. GI: Abdomen is soft, nontender, nondistended. EXTREMITIES: 2+ pulses in all extremities. Gross motor and sensation are intact. No significant swelling noted. NEURO: GCS is 15. FACE: The patient has some swelling to his face, but most significantly to his upper lip. He is not able to open his eyes at this time due to facial swelling. There is also a contusion over the left side of his face. ASSESSMENT: 1. Status post fall from roof. 2. Tiny bilateral pneumothoraces. 3. Small left hemothorax. 4. Sternal fracture with mediastinal hematoma. 5. Extensive scalp hematoma. 6. Left clavicle fracture. 7. Line C7 endplate fracture. 8. T1-5 and 6 vertebral body fractures. 9. C7 and T1, 3 and 4 spinous process fracture. 10. Acute allergic reaction with angioedema to the upper lip. PLAN: Continue current diet. Discontinue gabapentin and tramadol. Change the patient to Tylenol No. 3. Continue to closely monitor for signs of worsening allergic reaction. I did discuss with the patient further signs of allergic reaction and advised him to call the nurse. If he has any new symptoms or worsening symptoms, he is able to use the call dickens and call the nurse. I also asked nursing to closely monitor him and if there is concern, to call me for revaluation and re-dosing of medications as needed. Continue physical and occupational therapy. Job ID: [id number]
[2020-10-08] MEDS: Sodium Chloride 0.9% 1,000 ML IV SCH ×3 (04:13→20:49)
[2020-10-08] MEDS: Ibuprofen 800 MG TAB PO SCH (05:10)
[2020-10-08] MEDS: Acetaminophen 325 MG TAB PO SCH ×4 (05:11→23:29)
--- NOTE | 2020-10-08 06:32 | PRG ---
DATE OF SERVICE: 10/07/2020 SUBJECTIVE: The patient is currently on the surgical floor. He is hospital day 2, status post a fall from one story roof, landing on his head, which he sustained a tiny bilateral pneumothoraces, sternal fracture with retrosternal hematoma, C7 endplate fracture, T1 through 5, and T6 vertebral body fractures, multiple spinous process fractures, and had reported paresthesias of his lower greater than upper extremities. Today, his left lower extremity has improved. His right lower extremity has intermittent pain as well as his right upper extremity seem to cause him some concern of anxiety as he could not remember if this was a part of his initial injury. It was explained to him his injuries and possible cord contusions, and that we would monitor this closely as it was nonsurgical at this time, but should things change, progress/worsen, surgical indications may be discussed at that time. The patient is in a well fitted C-TLSO brace. He is tolerating his pain. He is voiding without difficulty. He has not had a bowel movement yet. He reports he did have some dizziness yesterday working with therapy and the therapist of note is in the room to work with him right now. PHYSICAL EXAMINATION: VITAL SIGNS: Temperature 97.6, heart rate 102, blood pressure 148/86, respirations 16, oxygen saturations 96% on 2 L. GENERAL: The patient is resting comfortably in bed. His Bambi Coma Scale is 14. He is -1 for eye opening due to his significant upper lid swelling. HEENT: Head, his large scalp hematoma is progressing down his face, mostly in his periorbital region and facial area, at this time. Again, the patient is able to attempt to open his eyes, but the swelling is restricting this. Eyes manually opened by myself. His pupils are PERRLA and extraocular motions intact as well as to be examined with his swelling. Nose has some small amount of crusted blood, still. Otherwise, unremarkable. Ears are atraumatic without discharge. Oropharynx is clear. NECK: Immobilized in [place] collar. CHEST: Clear to auscultation with good inspiratory and expiratory effort. HEART: Regular rate and rhythm. ABDOMEN: Soft, nontender with hypoactive bowel sounds. EXTREMITIES: Neurovascularly intact x4. LABORATORY DATA: White blood cell count 16.7, hemoglobin 10.0, hematocrit 28.0, platelets 170. Sodium 133, potassium 4.3, chloride 102, CO2 of 21, BUN 20, creatinine 0.82, glucose 131, magnesium 2.2, phosphorus 2.5. IMAGING DATA: There are no radiographs reviewed this morning. ASSESSMENT AND PLAN: 1. Status post fall from roof. 2. Multiple cervical spine process fractures. 3. Multilevel thoracic compression fractures. 4. Bilateral tiny pneumothoraces. 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 Encourage out of bed and ambulation. Continue current pain regimen. We discussed with nurses that when the patient is lying still in bed, he may have the front of his [place] collar loosened just slightly to allow continued migration of his hematoma with gravity. We will continue to monitor his labs, specifically his sodium and WBCs as there have been changes. Job ID: [id number]
[2020-10-08] MEDS ORDERED: Dexamethasone 4 mg/ml Vial SLOW IVP SCH (08:15)
[2020-10-08] MEDS ORDERED: Dexamethasone 10 MG/ML VIAL SLOW IVP SCH (09:00)
[2020-10-08] MEDS ORDERED: Famotidine/PF 20 mg/2ml Vial SLOW IVP SCH (09:00)
[2020-10-08] MEDS: Ascorbic Acid 500 mg Chewable Tablet PO SCH ×2 (09:02→20:50)
[2020-10-08] MEDS: Ferrous Sulfate 325 MG TAB PO SCH ×2 (09:03→20:51)
--- NOTE | 2020-10-08 09:16 | MRI ---
MRI CERVICAL SPINE WITHOUT CONTRAST: INDICATION: Post trauma. Paralysis lower extremities. COMPARISON: Comparison is made to MRI of cervical spine 10/05/2020. Correlation is also made to CT cervical spin e 10/05/2020. FINDINGS: Vertebral bodies of cervical spine maintain height and alignment. Cervical spine vertebrae continue to maintain normal signal. There is edema seen in the T1, T2, T3, and T4 vertebrae indicating mild s uperior end plate fractures. No significant loss of height at this time. Extensive edema is seen in the posterior muscular of the cervical spine as described on the prior exa m, not significantly changed. There is increasing prevertebral edema seen in the cervical spine today. The prevertebral edema exte nds from the base of the skull to the C4-5 level and now measures up to 1.3 cm width at the C3 level. This has significantly increased from the prior study at which time this prevertebral edema at C3 m easured approximately 5 mm. Prevertebral edema is again seen from C7 extending into the thoracic spine and this is essentially un changed from the prior MRI. The spondylosis in the cervical spine is stable with disk bulge and spondylitic changes most pronounc ed at C5-6 where these changes abut the anterior cord. The cervical cord continues to exhibit normal signal with no interval change. Spinous process fractures have been previously described and are be tter delineated on CT. IMPRESSION: 1. Edema in the T1, T2, T3, and T4 vertebrae seen on sagittal T2 images consistent with fractures wi thout significant loss of height. 2. Increasing prevertebral edema in the cervical spine from C1-2 through C4-5 as described above. 3. Extensive edema within the posterior musculature not significantly changed. 4. Prevertebral edema from C7 into the thoracic spine is similar to the prior exam. 5. No acute cord edema or change identified. POS: AGW
--- NOTE | 2020-10-08 09:28 | MRI ---
MRI THORACIC SPINE WITHOUT CONTRAST: INDICATION: Lower extremity weakness. Trauma. COMPARISON: Comparison is made to an MRI of thoracic spine 10/05/2020. FINDINGS: The fracture deformities involving T5 and T6 were previously described and are again noted and have n ot significantly changed. Disk protrusion with posterior osteophyte at T5-6 was described previously . These changes compress the cord. The cord compression is now more severe with slight kinking of t he cord and there is increased T2 signal within the cord at this level which extends from T4 through the T7 region indicating cord edema and injury. The vertebral bodies otherwise maintain height. High signal is seen at multiple thoracic vertebrae c onsistent with fractures which were previously described and appear stable. The posterior spinous pr ocess and posterior element fractures have been previously described and are better appreciated on pr evious CT. Prevertebral edema is again noted extending from C7 through T8-T9 level similar to the prior exam. IMPRESSION: 1. Increasing compression of the cord at T5-T6 when compared to 10/05/2020. There is now mild kinki ng of the cord and there is increased T2 signal within the cord when compared to the prior study. 2. Other posttraumatic changes have been previously described and do not appear significantly change d. POS: AGW
--- NOTE | 2020-10-08 09:42 | CON ---
DATE OF CONSULTATION: 10/08/2020 SUBJECTIVE: Last night, Mr. Muro developed progressive edema throughout his body. He ultimately was transferred to the ICU for close observation and has been started on hydrocortisone. He continues to be extremely swollen in the face and body. Last night, he also developed a feeling of more heaviness and weakness in his legs. We obtained urgent MRIs of the cervical and thoracic spine. Cervical spine is unchanged and there is no new or progressive cord compression or other findings. In the thoracic spine, he has more edema in the thoracic cord than previously. In my opinion, the degree of compression is not changed. Overall, the degree of compression is not terribly severe in my opinion, but the edema has markedly worsened. IMPRESSION AND PLAN: I suspect the increased cord edema as related to his systemic edema, which is quite traumatic. I am not convinced that the surgery would be of any benefit here, and in fact, I feel that it has a high potential for worsening. From a neurologic perspective with a fragile edematous cord, we may be better off treating this with steroids and treating the systemic edema. Additionally, given the evolving systemic issues, proceeding with surgery at this time seems high risk for airway reasons and otherwise. We will add Decadron to the current hydrocortisone regimen. I discussed the case with Dr. Monsalve as well as with two different radiologists. Job ID: [id number]
--- NOTE | 2020-10-08 10:09 | PRG ---
DATE OF SERVICE: 10/08/2020 SUBJECTIVE: Mr. Muro is a 55-year-old man, post injury day #3, status post fall from a height. He sustained multiple traumatic injuries including T5 and T6 burst fractures. Overnight, the patient developed generalized swelling of the face, torso, and diminished sensation to bilateral lower extremities with muscle weakness. Repeat MRI of the cervical and thoracic spine revealed stable traumatic injuries. There remains cord edema in the thoracic spine at the level of the fractures. The patient is awake and alert. Bambi Coma Scale currently is 15. OBJECTIVE: VITAL SIGNS: Include blood pressure 111/73, pulse is 121, respiratory rate is 17, maximum temperature in last 24 hours is 98.9 degrees Fahrenheit, oxygen saturation is 100% on 2 L by nasal cannula oxygen. HEENT: Reveals significant facial swelling, albeit less swollen since transfer to the ICU. GENERAL: He is able to verbalize without any stridor. NECK: Cervical spine remains immobilized in a C-collar. HEART: Reveals regular rate with sinus tachycardia. No murmurs or gallops auscultated. LUNGS: Clear to auscultation bilaterally. Breathing, regular and nonlabored. ABDOMEN: Soft, nontender, and nondistended. EXTREMITIES: Reveal 2+ radial and pedal pulses bilaterally. He has generalized body edema. MUSCULOSKELETAL: Reveals 5/5 muscle strength in bilateral upper extremities and 2/5 bilateral lower extremities. He is able to appreciate pressure touch, however, is not able to discern pinprick. IMPRESSION: 1. Post injury day #3, status post fall. 2. 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 3. Acute angioedema with anaphylaxis etiologies unknown at this time. PLAN: 1. Continue with high dose corticosteroid therapy, proton pump inhibitors, antihistamine and optimize the patient's mean arterial pressure to ensure adequate perfusion of the spinal cord and brain. 2. We will place a central venous catheter to guide resuscitation for that effort. Discussed the above findings and plan with Dr. Pierce with Neurosurgical Services. I have also informed the patient of the findings and recommendations. He has consented to placement of central venous access for resuscitative efforts. Job ID: [id number]
--- NOTE | 2020-10-08 10:45 | RAD ---
RADIOGRAPH CHEST 1 VIEW: DATE: 10/08/2020 TIME: 10:34 AM HISTORY: Central line placement in 55-year-old male COMPARISON: 10/06/2020 FINDINGS: There is a new right subclavian central venous catheter with distal tip overlying the right atrium. There are new bilateral pleural effusions. There are new hazy pulmonary parenchymal densities bilaterally, in the mid and lower lung zones. The right base is the most dense with small areas of consolidation. The left lung has more area/volume involved than the right. No pneumothorax identified. IMPRESSION: 1) interval insertion of right subclavian central venous catheter without evidence of pneumothorax. 2.) Interval development of bilateral pleural effusions. 3) interval development of pulmonary parenchymal densities. This may represent a combination of pulmo nary edema bilaterally, and right basilar atelectasis. Aspiration or pneumonia is not ruled out for the right base opacity.
[2020-10-08 11:53] LABS: #Eosinphils 0.1 thou/uL (0.0-0.7); #Monocytes 0.6 thou/uL (0.11-0.59); #Neutrophils 10.4 thou/uL (1.40-6.50); %Basophils 0.3 % (0.0-1.0); %Eosinophils 0.6 % (0.0-10.0); %Lymphocytes 7.9 % (21.0-51.0); %Monocytes 5.2 % (0.0-10.0); Hemoglobin 7.2 g/dL (14.0-18.0); Mean Corpuscular HGB CONC 34.2 g/dL (32.0-36.0); Mean Corpuscular Hemoglobin 31.8 pg (27.0-31.0); Mean Platelet Volume 6.6 fL (7.4-10.4); Platelet Count 133 thou/uL (130-400); RBC Distribution Width 11.6 % (11.5-14.5); Red Blood Cell (RBC) Count 2.26 mill/uL (4.70-6.10); White Blood Cell (WBC) Count 12.1 thou/uL (4.8-10.8)
[2020-10-08 12:14] LABS: Anion Gap 12 mmol/L (10-20); BUN (Urea Nitrogen) 27 mg/dL (8.4-25.7); Calc. Creatinine Clearance 103 mL/min (70-130); Calcium 7.6 mg/dL (7.8-10.44); Carbon Dioxide 24 mmol/L (22-29); Chloride 100 mmol/L (98-107); Estimated GFR-MDRD Greater than 90; Glucose 143 mg/dL (70-105); Magnesium 2.6 mg/dL (1.6-2.6); Potassium 4.3 mmol/L (3.5-5.1); Sodium 132 mmol/L (136-145)
--- NOTE | 2020-10-08 12:50 | OP ---
DATE OF PROCEDURE: 10/08/2020 PREOPERATIVE DIAGNOSES: 1. Post injury day #3, status post fall. 2. 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 POSTOPERATIVE DIAGNOSES: 1. Post injury day #3, status post fall. 2. Multiple traumatic injuries including a T5-6 spinal fractures with paraparesis. PROCEDURE PERFORMED: Placement of right subclavian triple-lumen central venous catheter. INDICATIONS FOR PROCEDURE: A 55-year-old man who fell from a height, suffering multiple traumatic injuries including T5 and T6 spinal fractures associated with paraparesis. The patient developed generalized body edema overnight and was transferred to the intensive care unit, suspicious of angioedema and an anaphylactic shock. He has been on steroids. Due to his associated spinal cord injury, decision was made to place a central venous catheter to guide resuscitation in order to maintain mean arterial pressure of 80 or better. DESCRIPTION OF PROCEDURE: Informed consent was obtained from the patient. He was placed in supine position. Right chest was wall sterilely prepped and draped in usual fashion. Skin below the right clavicle anesthetized with 1% lidocaine. Right subclavian vein cannulated with an 18-gauge introducer needle returning dark venous blood. Guidewire was passed through the needle and advanced into the right subclavian vein without resistance. Needle was withdrawn over the guidewire. A stab incision was made adjacent to the guidewire using 11 scalpel. Dilator was passed over the guidewire dilating the subcutaneous tissues. Dilator was removed, and a triple-lumen central venous catheter was advanced over the guidewire and placed in the right subclavian vein without resistance stopping at the 15-cm andres. Guidewire was removed. Dark venous blood was aspirated from all 3 ports, which were individually flushed with saline. Catheter was secured to anterior chest wall using 3-0 silk suture at 2 points. Sterile dressings were applied. Chest x-ray was obtained confirming proper placement of the catheter and no pneumothorax present. Job ID: [id number]
[2020-10-08] MEDS: Dexamethasone 10 MG/ML VIAL SLOW IVP SCH ×3 (13:05→23:29)
[2020-10-08] MEDS ORDERED: Phenylephrine 10 MG/NS 250 ML 10 MG in Premix Bag 1 BAG IVPB SCH (13:15)
[2020-10-08] MEDS: Phenylephrine 40 MG in Sodium Chloride 0.9% 250 ML 250 ML IVPB SCH ×2 (16:00→22:56)
[2020-10-08] MEDS: Acetaminophen/Codeine 30-300mg Tablet PO PRN (16:00)
[2020-10-08] MEDS: Pantoprazole 40 MG VIAL IVP SCH (20:49)
[2020-10-08] MEDS ORDERED: Sodium Phosphate 30 MMOL in Sodium Chloride 0.9% 250 ML 250 ML IVPB SCH (21:15)
--- NOTE | 2020-10-09 02:42 | PRG ---
DATE OF SERVICE: 10/08/2020 SUBJECTIVE: The patient was seen this evening during rounds. He was resting comfortably in bed with no signs of acute distress. His facial swelling is improved since this morning. He has also been started on a phenylephrine drip with a MAP goal of 80, which he is exceeding. Urinary output has been excellent. OBJECTIVE: VITAL SIGNS: Temperature 99.1, pulse 101, respirations 28, oxygen saturation 93% on room air, blood pressure 134/69. GENERAL: Middle-aged male, lying in bed with a COLLECTION COORDINATOR brace in place and fitting appropriately. PULMONARY: Equal chest rise and fall. No signs of acute respiratory distress. ABDOMEN: Soft, nontender, and nondistended. EXTREMITIES: 2+ pulses in all extremities. NEURO: GCS is 15. FACE: The patient still has significant facial swelling, but has improved since this morning. ASSESSMENT: 1. Status post fall from roof. 2. Bilateral pneumothoraces, stable. 3. Small left pneumothorax, stable. 4. Sternal fracture with mediastinal hematoma. 5. Extensive scalp hematoma, improving. 6. Left clavicle fracture, nonoperative. 7. C7 endplate fracture. 8. T1, T2, T5, T6 vertebral body fracture. 9. C7 and T1, T3, T4 spinous process fractures. 10. Acute angioedema with anaphylaxis, unknown etiology. Possibly tramadol or gabapentin. PLAN: Continue n.p.o. with normal saline at 100 an hour. Continue Khoa titrate for a goal of MAP of 80 and SVI about 40. Continue Decadron scheduled and Benadryl as needed. Monitor urinary output. Monitor airway. Repeat blood work in the morning. Replace sodium phos. Of note, the patient had a nearly 3-point drop in his hemoglobin yesterday. We will closely monitor for signs of a GI bleed as he has no other known organ injury from his fall. He is receiving a lot of steroids, but is also on PPI for prophylaxis of GI bleed. Job ID: [id number]
[2020-10-09 06:15] LABS: Hemoglobin 5.7 g/dL (14.0-18.0)
[2020-10-09 06:16] LABS: #Lymphocytes 1.1 thou/uL (1.20-3.40); #Monocytes 0.7 thou/uL (0.11-0.59); #Neutrophils 10.4 thou/uL (1.40-6.50); %Eosinophils 0.4 % (0.0-10.0); %Lymphocytes 9.2 % (21.0-51.0); %Monocytes 5.6 % (0.0-10.0); %Neutrophils 84.8 % (42.0-75.0); Mean Corpuscular HGB CONC 33.5 g/dL (32.0-36.0); Mean Corpuscular Hemoglobin 30.7 pg (27.0-31.0); Mean Corpuscular Volume 91.6 fL (78.0-98.0); Mean Platelet Volume 6.4 fL (7.4-10.4); Platelet Count 148 thou/uL (130-400); RBC Distribution Width 11.8 % (11.5-14.5); Red Blood Cell (RBC) Count 1.86 mill/uL (4.70-6.10); White Blood Cell (WBC) Count 12.2 thou/uL (4.8-10.8)
[2020-10-09 06:59] LABS: Anion Gap 12 mmol/L (10-20); BUN (Urea Nitrogen) 21 mg/dL (8.4-25.7); Calc. Creatinine Clearance 124 mL/min (70-130); Calcium 7.5 mg/dL (7.8-10.44); Carbon Dioxide 26 mmol/L (22-29); Chloride 109 mmol/L (98-107); Estimated GFR-MDRD Greater than 90; Glucose 156 mg/dL (70-105); Magnesium 2.7 mg/dL (1.6-2.6); Phosphorus 2.5 mg/dL (2.3-4.7); Potassium 3.8 mmol/L (3.5-5.1); Sodium 143 mmol/L (136-145)
[2020-10-09] MEDS: Dexamethasone 10 MG/ML VIAL SLOW IVP SCH (07:16)
[2020-10-09] MEDS: Sodium Chloride 0.9% 1,000 ML IV SCH ×2 (07:16→15:26)
[2020-10-09] MEDS: Acetaminophen 325 MG TAB PO SCH ×4 (07:17→23:15)
[2020-10-09 07:25] LABS: INR-International Normal Ratio 1.1; PTT 30.8 sec (22.9-36.1); Prothrombin Time 14.5 sec (12.0-14.7)
--- NOTE | 2020-10-09 07:56 | ULT ---
US Abdomen Limited: 10/09/2020 6:40 AM CLINICAL HISTORY: Evaluate for intra-abdominal bleeding status post trauma. STUDY: Limited four-quadrant abdominal ultrasound COMPARISON: None. FINDINGS: No free fluid is seen in any of the 4 quadrants of the abdomen. Multiple cysts are incidentally seen in the right kidney. Bilateral pleural effusions are incidentally seen. IMPRESSION: No evidence of intra-abdominal free fluid.
--- NOTE | 2020-10-09 08:14 | RAD ---
EXAM: Single view of the chest HISTORY: Hemothorax COMPARISON: 10/08/2020, 10/06/2020; CT chest 10/05/2020 FINDINGS: Single view of the chest shows an enlarged but stable cardiomediastinal silhouette. The ce ntral venous catheter is unchanged in position. There is a stable small right pleural effusion with adjacent atelectasis. Multifocal fluffy airspace opacities are seen in the lungs. There is a josey p sulcus sign in the left thorax which is concerning for an anterior pneumothorax. There is a left clavicle fracture and left rib fractures. IMPRESSION: This concern for a left pneumothorax. A repeat upright chest x-ray or a right lateral dec ubitus position radiograph is recommended to evaluate for a pneumothorax. The results were discussed with patient's nurse Mayra at 8:07 AM on 10/09/2020. She would let Dr. Monsalve know of michael sheppard as soon as possible.
[2020-10-09] MEDS ORDERED: Sodium Bicarb 50 MEQ/50 ML Abboject 8.4% SYRINGE IVP SCH ×2 (08:30→11:30)
--- NOTE | 2020-10-09 09:31 | RAD ---
PORTABLE CHEST: Date: 10/09/2020 HISTORY: Pneumonia follow-up. COMPARISON: Film at 0643 hours on 10/09/2020. FINDINGS/IMPRESSION: Increasing opacity in both lower lung landry on the current study. There was concern of left pneumothorax on earlier study. No definite pneumothorax seen on this portable upright exam. POS: AGW
--- NOTE | 2020-10-09 09:38 | CT ---
EXAM: CT of the chest with contrast CT of the abdomen and pelvis with contrast HISTORY: Decreased hemoglobin and hematocrit. Fall from a building a few days ago. Evaluate for bleed ing. COMPARISON: 10/05/2020 TECHNIQUE: 1. Multiple contiguous axial images were obtained in a CT the chest with contrast. Coronal and sagitt al reformats were performed. 2. Multiple contiguous axial images were obtained and a CT of the abdomen and pelvis with contrast. C oronal and sagittal reformats were performed. FINDINGS: CT CHEST: HEART: Normal in size without focal cardiac abnormality MEDIASTINUM: No hilar or mediastinal lymphadenopathy. There is a tiny amount of retrosternal blood wh ich has improved compared to the prior exam. The density likely representing blood seen previously in the posterior mediastinum has resolved. LUNGS: No focal infiltrates, nodules, or masses. PLEURAL SPACE: Small bilateral pleural effusions with adjacent atelectasis. The Hounsfield unit value of the pleural effusions is between 35 and 40 suggesting that blood may be present within the fluid. Tiny bilateral anterior pneumothoraces are seen. CHEST WALL SOFT TISSUES: There is a right subclavian central venous catheter with its tip in the supe rior vena cava. Edema is seen in the anterior chest wall soft tissues CT ABDOMEN/PELVIS: ABDOMEN: LIVER: within normal limits. BILE DUCTS: Normal caliber. GALLBLADDER: No calcified gallstones. Normal caliber wall. PANCREAS: within normal limits. SPLEEN: within normal limits. ADRENALS: within normal limits. KIDNEYS: There is stable chronic right UPJ obstruction without delay in the right nephrogram compared to the right. Nonobstructing calcifications are seen in the calyces in the lower pole the right kidney, unchanged. PELVIS: REPRODUCTIVE ORGANS: No pelvic masses. URETERS: within normal limits. BLADDER: Contains a Torres catheter. PERITONEUM: No ascites or free air, no fluid collection. BOWEL: Normal caliber. MESENTERY AND RETROPERITONEUM: No enlarged mesenteric or retroperitoneal lymph nodes. VESSELS: Normal. ABDOMINAL WALL: within normal limits. OSSEOUS STRUCTURES: There is a left clavicle fracture. Multiple bilateral rib fractures are stable. A sternal fracture is seen. There are stable comminuted fractures of T5 and T6 with compression deformity of both of these fractures. There are spinous process fractures of C7, T1, T3 and T4. IMPRESSION: 1. Small bilateral hemothoraces with adjacent atelectasis 2. Small bilateral pneumothoraces 3. No evidence of acute intra-abdominal/pelvic abnormality 4. Chronic right UPJ obstruction with nonobstructing calcifications in the right kidney. 5. Multiple fractures described above are stable compared to the prior trauma CT.
--- NOTE | 2020-10-09 09:51 | PRG ---
DATE OF SERVICE: 10/09/2020 The patient was transitioned to the ICU previous night after developing progressive edema throughout his body as well as development of weakness and sensation changes in the legs. We evaluated the patient and repeated his MRIs, which noticed diffuse edema in the cord, but no new significant compression changes. He was treated with high-dose Decadron and he has had some improvement in his overall swelling, particularly in the face as well as in the upper extremities. His lower extremities remain quite swollen. He has also had a significant drop in his hemoglobin since his admission. On admission, his hemoglobin was 14 and today it is 5.7. He had a repeat abdominal ultrasound, which was negative for any free fluid. On exam, vital signs are stable. He appears to have sensation throughout and reports feels similar in the upper and lower extremities to light touch. He has no appreciated motor function in the lower extremities. He continues to have significant lower extremity edema. His INSPECTOR TIMERS brace is in place and he has been wearing this at all times. Unfortunately, the patient has no much change in his motor function. In addition, he has had significant drop in his hemoglobin. Discussed this with the Trauma Team and they will go ahead and get a new CT chest, abdomen, and pelvis to attempt to find the source. I will go ahead and decrease his steroids, Decadron 4 q.6h. I have discussed with Dr. Pierce and we will continue to monitor his progress closely. Job ID: [id number] MTDD
[2020-10-09] MEDS ORDERED: Lidocaine 1% w/Epinephrine 1:100K 20 ML VIAL ONE ×2 (10:07→10:08)
[2020-10-09] MEDS: Dexamethasone 4 mg/ml Vial SLOW IVP SCH ×3 (10:13→20:34)
[2020-10-09] MEDS: Ferrous Sulfate 325 MG TAB PO SCH ×2 (10:18→20:33)
[2020-10-09] MEDS: Ascorbic Acid 500 mg Chewable Tablet PO SCH ×2 (10:19→20:33)
[2020-10-09] MEDS: Pantoprazole 40 MG VIAL IVP SCH ×2 (10:34→20:34)
--- NOTE | 2020-10-09 11:35 | PRG ---
DATE OF SERVICE: 10/09/2020 I visited Mr. Muro. His facial swelling has improved. His hemoglobin has continued to drop. On physical exam today, he has left toe wiggle and he did yesterday, but has more proximal muscle movement in the left quadriceps and iliopsoas. There is very little motor movement in the right leg, although he reports that sensation has improved. Overall is my opinion that the predominant cause for the deterioration is increased edema in the spinal cord. This is associated with the systemic anaphylaxis that he had and expected to gradually improve. I am recommending continue with Decadron and we will decrease the dose to 4 q.6 today. I do not think the degree of canal compromise or cord compression has increased. Based on both the MRI scan from yesterday and a new CT scan today. I feel that surgery is likely to do more harm than good to his spinal cord function given the precarious nature of the edema and cord contusion as well as recurrent anaphylactic reaction and critical anemia. I discussed with the Trauma Surgery team efforts to correct the red blood cell count to a target level hematocrit of 30 or greater. Discussed at length with the patient and his son. They expressed understanding and understand all considerations in this complex case. Job ID: [id number]
[2020-10-09] MEDS ORDERED: Fentanyl 100 MCG/2 ML VIAL ONE (11:56)
[2020-10-09] MEDS ORDERED: Fentanyl 100 MCG/2 ML VIAL SLOW IVP SCH (12:30)
[2020-10-09] MEDS ORDERED: Furosemide 40 MG/4 ML VIAL SLOW IVP SCH (12:30)
[2020-10-09] MEDS ORDERED: Iopamidol 370 76% 100 ML VIAL ONE (12:55)
[2020-10-09 15:11] LABS: MDiff Complete? YES; Mean Corpuscular HGB CONC 33.9 g/dL (32.0-36.0); Mean Corpuscular Hemoglobin 30.3 pg (27.0-31.0); Mean Corpuscular Volume 89.3 fL (78.0-98.0); Mean Platelet Volume 6.5 fL (7.4-10.4); Platelet Count 152 thou/uL (130-400); RBC Distribution Width 12.9 % (11.5-14.5); Red Blood Cell (RBC) Count 3.28 mill/uL (4.70-6.10); White Blood Cell (WBC) Count 20.3 thou/uL (4.8-10.8)
[2020-10-09 15:12] LABS: Band 20 % (5-11); Lymphocytes 2 % (21-51); Monocytes 4 % (0-10); Neutrophil 72 % (42-75); Nucleated RBC 2 % (0); Platelet Morphology Comment Appears Adequate; Polychromasia MODERATE = 3-4 cells (100X) (0-2/hpf); Reactive Lymphocytes 2 % (0-10)
[2020-10-09] MEDS: Morphine 2 MG/ML VIAL SLOW IVP PRN (15:28)
--- NOTE | 2020-10-09 16:50 | PRG ---
DATE OF SERVICE: 10/09/2020 SUBJECTIVE: Mr. Muro is a 55-year-old man, who is status post fall from a height, suffered multiple traumatic injuries including T5 and T6 spinal fractures, now associated with paraparesis. The patient developed acute distributive shock, which required admission to intensive care unit with aggressive resuscitation including corticosteroid therapy. This morning, he is awake and alert. He denies any dyspnea or syncope. He was previously on vasopressor support to achieve a mean arterial pressure of over 80. Urinary output remains adequate for this patient's age and weight. He remains with weakness of his lower extremities. OBJECTIVE: VITAL SIGNS: This morning, include blood pressure 128/61, pulse 88, respiratory rate is 18, maximum temperature in last 24 hours is 99.9 degrees Fahrenheit, oxygen saturation is 97% on 3 L by nasal cannula oxygen. HEENT: Reveals decreasing facial swelling. Pupils are equal, round, reactive to light and accommodation. NECK: He has no jugular venous distention noted. HEART: Reveals regular rate and rhythm. No murmurs or gallops auscultated. LUNGS: Clear to auscultation bilaterally. Breathing, regular and nonlabored. ABDOMEN: Soft, nontender, and nondistended. EXTREMITIES: Reveal 2+ radial and pedal pulses bilaterally. No ankle edema is present. MUSCULOSKELETAL: Reveals 5/5 muscle strength in bilateral upper extremities and 2/5 in bilateral lower extremities. LABORATORY FINDINGS: Today include a CBC with 12,200 white blood cells, hemoglobin and hematocrit 5.7 and 17.1 respectively, and platelet count 148,000. Metabolic profile; sodium 143, potassium 3.8, chloride is 109, bicarb is 26, BUN 21, creatinine 0.71, glucose 156, magnesium 2.7, and phosphorus is 2.5. Chest CT scan today reveals bilateral hemothoraces. CT of the abdomen and pelvis is unremarkable for any acute intraabdominal pathology. IMPRESSION: 1. Status post fall from height, post-injury day #4. 2. T5 and T6 spinal fractures with paraparesis. 3. Acute blood loss anemia. 4. Bilateral hemothoraces. PLAN: 1. Bilateral tube thoracostomies and we will order to transfuse the patient. Meanwhile, the patient will receive transfusion of 2 units of packed red blood cells. 2. We will increase activity per Physical and Occupational Therapy. Above findings and plan discussed with the patient, who indicates understanding of information provided. He has granted consent for bilateral tube thoracostomies. Job ID: [id number]
--- NOTE | 2020-10-09 17:31 | OP ---
DATE OF PROCEDURE: 10/09/2020 PREOPERATIVE DIAGNOSES: 1. Post injury day #4, status post fall. 2. Bilateral hemothoraces. POSTOPERATIVE DIAGNOSES: 1. Post injury day #4, status post fall. 2. Bilateral hemothoraces. PROCEDURE PERFORMED: Placement of 28-[place]er bilateral tube thoracostomies. INDICATIONS FOR PROCEDURE: A 55-year-old man, post injury day #4, status post fall from a height. The patient sustained multiple traumatic injuries including the T5 and T6 spinal fractures. He has developed bilateral hemothoraces, and decision was made today to place chest tubes to evacuate the same. DESCRIPTION OF PROCEDURE: Informed consent was obtained from the patient, who was placed in supine position. Both chest galeano were separately sterilely prepped and draped in usual fashion. The skin at the 6th intercostal space, left anterior axillary line was anesthetized with 1% lidocaine. A 1 cm transverse incision was made here using an 11 scalpel. The left pleural cavity was entered using a hemostat. The digital finger exploration reveals no pleural adhesions. A 28-[place]er chest tube was introduced into the pleural cavity and advanced superiorly and posteriorly. The chest tube was then connected to Pleur-evac, which was placed to suction, evacuating approximately 500 mL of blood. The chest tube was then secured to anterior chest wall using 0 silk suture. Sterile dressings were applied. I turned my attention to the right chest wall, again which was separately sterilely prepped and draped in usual fashion. Skin at the 6th intercostal space, right anterior axillary line was anesthetized with 1% lidocaine. A 1 cm transverse incision was made here using 11 scalpel. Hemostat was used to enter the pleural cavity bluntly. Digital finger exploration revealed no pleural adhesions. 28-[place]er chest tube introduced into the pleural cavity and advanced superiorly and posteriorly. The chest tube was connected to Pleur-evac, which was placed to wall suction. We evacuated approximately 500 mL of blood. Chest tube again was secured to anterior chest wall using 0 silk suture. Sterile dressings were applied. The patient tolerated this procedure without any apparent complication and remains hemodynamically stable following completion of procedure. Oxygen saturation improved to 98% following completion of the procedure. Job ID: [id number]
[2020-10-09] MEDS: Senokot S 8.6-50 MG TAB PO SCH (20:33)
[2020-10-09 20:43] LABS: Hemoglobin 9.6 g/dL (14.0-18.0)
[2020-10-09] MEDS: Cyclobenzaprine 10 MG TAB PO PRN (21:29)
[2020-10-09] MEDS: Melatonin 3 MG TAB PO PRN (23:14)
--- NOTE | 2020-10-10 01:25 | PRG ---
DATE OF SERVICE: 10/09/2020 SUBJECTIVE: This is a 55-year-old male, status post fall resulting in poly traumatic injuries to include T-spine fractures associated with paraparesis. Earlier today, the patient was found to have bilateral hemothoraces. Bilateral chest tubes were placed. He has received 2 units of PRBC as well as autotransfusion of approximately 900 mL from his chest tubes. Upon my evaluation this evening, the patient vocalized no complaint, but did report some difficulty sleeping. He reports that his pain is well controlled at this time. OBJECTIVE: VITAL SIGNS: Reviewed and as documented in the electronic medical record. GENERAL: Resting in bed, in no acute distress. C-collar is in place. Bilateral chest tubes. PULMONARY: Normal work of breathing. Symmetric rise. CARDIOVASCULAR: Regular rate and rhythm. ABDOMEN: Soft, nontender, and nondistended. LABORATORY FINDINGS: Hemoglobin 9.6 and hematocrit 28.5. ASSESSMENT: 1. Status post fall from height, post injury day #4. 2. T5 and T6 spinal fractures with paraparesis. 3. Bilateral hemothoraces. 4. Acute blood loss anemia. PLAN: The patient's heart rate has been relatively elevated in the high 90s and low 100s. Despite the amount of blood has been transfused, the patient still appears to be symptomatic from his anemia. We will transfuse an additional unit of PRBC at this time. Recheck labs in the a.m. In regard to his insomnia, we will add melatonin 6 mg p.r.n. at bedtime. Plan of care was discussed with the patient and nursing at bedside, and all questions were answered prior to this dictation. Continue other supportive care as ordered and continue to monitor. Job ID: [id number]
[2020-10-10] MEDS: Dexamethasone 4 mg/ml Vial SLOW IVP SCH ×4 (02:59→20:42)
[2020-10-10 05:15] LABS: INR-International Normal Ratio 1.1; PTT 26.2 sec (22.9-36.1); Prothrombin Time 14.7 sec (12.0-14.7)
[2020-10-10 05:36] LABS: Anion Gap 11 mmol/L (10-20); BUN (Urea Nitrogen) 29 mg/dL (8.4-25.7); Calc. Creatinine Clearance 124 mL/min (70-130); Calcium 7.7 mg/dL (7.8-10.44); Carbon Dioxide 28 mmol/L (22-29); Chloride 107 mmol/L (98-107); Estimated GFR-MDRD Greater than 90; Glucose 145 mg/dL (70-105); Magnesium 2.9 mg/dL (1.6-2.6); Phosphorus 2.5 mg/dL (2.3-4.7); Potassium 3.8 mmol/L (3.5-5.1); Sodium 142 mmol/L (136-145)
[2020-10-10 05:50] LABS: Band 12 % (5-11); Hemoglobin 10.7 g/dL (14.0-18.0); Lymphocytes 6 % (21-51); MDiff Complete? YES; Mean Corpuscular HGB CONC 35.1 g/dL (32.0-36.0); Mean Corpuscular Hemoglobin 32.3 pg (27.0-31.0); Mean Corpuscular Volume 91.9 fL (78.0-98.0); Mean Platelet Volume 7.1 fL (7.4-10.4); Monocytes 2 % (0-10); Myelocyte 1 % (0-0); Neutrophil 79 % (42-75); Platelet Count 129 thou/uL (130-400); RBC Distribution Width 12.8 % (11.5-14.5); Red Blood Cell (RBC) Count 3.32 mill/uL (4.70-6.10); White Blood Cell (WBC) Count 11.9 thou/uL (4.8-10.8)
[2020-10-10] MEDS: Acetaminophen 325 MG TAB PO SCH ×4 (06:38→23:32)
--- NOTE | 2020-10-10 07:38 | RAD ---
EXAM: Supine portable chest PROVIDED CLINICAL HISTORY: Pneumothoraces COMPARISON: 10/09/2020 FINDINGS: Cardiac and mediastinal silhouette is unchanged in appearance. Right subclavian central line is redem onstrated in similar position. Interval placement of bilateral chest tubes. Small left apical pneumothorax. Interval improvement in aeration at both lung bases. IMPRESSION: As above.
--- NOTE | 2020-10-10 08:19 | PRG ---
DATE OF SERVICE: 10/10/2020 SUBJECTIVE: Mr. Muro is alert and interactive. He is currently on oxygen. He has been transfused and his last hematocrit was 28. He does have some subtle toe wiggle in the left foot. The feet are grossly edematous. He has more proximal strength in the left leg. IMPRESSION AND PLAN: I am recommending we continue to stay the course with Decadron and conservative management. I believe that as the swelling resolves, we will see improvement in neurologic function over time. Job ID: [id number]
[2020-10-10] MEDS: Polyethylene Glycol 3350 17 GM Packet PO SCH (08:28)
[2020-10-10] MEDS: Pantoprazole 40 MG VIAL IVP SCH ×2 (08:28→20:42)
[2020-10-10] MEDS: Ascorbic Acid 500 mg Chewable Tablet PO SCH ×2 (08:29→20:42)
[2020-10-10] MEDS: Ferrous Sulfate 325 MG TAB PO SCH ×2 (08:29→20:42)
[2020-10-10] MEDS: Senokot S 8.6-50 MG TAB PO SCH ×2 (08:29→20:43)
[2020-10-10 08:46] LABS: INR-International Normal Ratio 1.1; PTT 24.2 sec (22.9-36.1); Prothrombin Time 14.8 sec (12.0-14.7)
[2020-10-10] MEDS ORDERED: Morphine 4 MG/ML VIAL ONE (09:39)
[2020-10-10] MEDS: Acetaminophen/Codeine 30-300mg Tablet PO PRN ×2 (09:50→15:59)
[2020-10-10] MEDS ORDERED: Morphine 4 MG/ML VIAL SLOW IVP SCH (10:00)
[2020-10-10] MEDS ORDERED: Furosemide 20 MG/2 ML VIAL SLOW IVP SCH (10:00)
[2020-10-10] MEDS: Acetaminophen/Codeine 30-300mg Tablet PO SCH ×3 (10:21→23:33)
[2020-10-10] MEDS: Morphine 2 MG/ML VIAL SLOW IVP PRN (12:12)
--- NOTE | 2020-10-10 13:23 | PRG ---
DATE OF SERVICE: 10/10/2020 SUBJECTIVE: Mr. Muro is a 55-year-old man, who is status post fall post injury day #5. He sustained multiple traumatic injuries including T5 and T6 spinal fractures with paraparesis. He also sustained bilateral hemothoraces, for which, he is postop day #1, status post bilateral tube thoracostomies. He is awake and alert today. He had received 2 units of packed red blood cells yesterday in addition to approximately 900 mL of autotransfused blood. This morning, he reports adequate pain control. He is able to wiggle his left toes to command. His Bambi Coma Scale is 15. Urinary output remains adequate for this patient's age and weight. OBJECTIVE: VITAL SIGNS: Today include blood pressure 138/76, pulse is 76, respiratory rate is 22, maximum temperature in the last 24 hours is 99.5 degrees Fahrenheit, oxygen saturation is 99% on 2 L by nasal cannula oxygen. HEENT: Reveals decreased facial swelling. Pupils are equal, round, reactive to light and accommodation. He has no jugular venous distention noted. HEART: Reveals regular rate and rhythm. No murmurs or gallops auscultated. LUNGS: Clear to auscultation bilaterally. Breathing, regular and nonlabored. Chest tubes remain in place with left 682 and right 770 mL of serosanguineous fluid. There is no air leak present. ABDOMEN: Soft, nontender, and nondistended. EXTREMITIES: Reveal 2+ radial and pedal pulses bilaterally. There is minimal residual ankle edema present. LABORATORY FINDINGS: Today include a CBC with 11,900 white blood cells, hemoglobin and hematocrit 10.7 and 30.6 respectively, platelet count is 129,000. Metabolic profile; sodium 142, potassium 3.8, chloride is 107, bicarb is 28, BUN is 29, creatinine 0.71, glucose 145, magnesium 2.9, and phosphorus is 2.5. IMPRESSIONS: 1. Post injury day #5, status post fall. 2. T5 and T6 spinal fractures with paraparesis. 3. Acute hypokalemia. 4. Acute hypophosphatemia. 5. Acute blood loss anemia, stable. PLAN: 1. Correct abnormal electrolytes. 2. Increase activity per Physical and Occupational therapy. 3. Continue with nonpharmacological VTE prophylaxis. Above findings and plan discussed with the patient. Anticipate ultimate discharge to inpatient rehabilitation in the next few days. The patient is certainly hemodynamically stable for transfer to general surgical floor. Job ID: [id number]
[2020-10-10] MEDS: Cyclobenzaprine 10 MG TAB PO PRN (18:21)
[2020-10-10] MEDS: Melatonin 3 MG TAB PO PRN (20:44)
[2020-10-11] MEDS: Dexamethasone 4 mg/ml Vial SLOW IVP SCH ×4 (02:57→20:09)
[2020-10-11] MEDS: Acetaminophen 325 MG TAB PO SCH ×3 (06:24→17:48)
[2020-10-11] MEDS: Acetaminophen/Codeine 30-300mg Tablet PO SCH ×3 (06:24→17:48)
[2020-10-11 07:00] LABS: Hemoglobin 11.8 g/dL (14.0-18.0); Mean Corpuscular HGB CONC 33.4 g/dL (32.0-36.0); Mean Corpuscular Hemoglobin 30.3 pg (27.0-31.0); Mean Corpuscular Volume 90.7 fL (78.0-98.0); Mean Platelet Volume 6.5 fL (7.4-10.4); Platelet Count 171 thou/uL (130-400); RBC Distribution Width 12.7 % (11.5-14.5); Red Blood Cell (RBC) Count 3.89 mill/uL (4.70-6.10)
[2020-10-11 07:28] LABS: Anion Gap 14 mmol/L (10-20); BUN (Urea Nitrogen) 26 mg/dL (8.4-25.7); Calc. Creatinine Clearance 144 mL/min (70-130); Calcium 8.2 mg/dL (7.8-10.44); Carbon Dioxide 24 mmol/L (22-29); Chloride 104 mmol/L (98-107); Estimated GFR-MDRD Greater than 90; Glucose 127 mg/dL (70-105); Magnesium 2.5 mg/dL (1.6-2.6); Phosphorus 3.1 mg/dL (2.3-4.7); Sodium 138 mmol/L (136-145)
--- NOTE | 2020-10-11 08:34 | RAD ---
SINGLE VIEW OF THE CHEST: COMPARISON: 10/10/2020. HISTORY: Multiple chest tubes. Followup exam. FINDINGS: A single view of the chest shows an enlarged cardiomediastinal silhouette. There is stable slight fu llness of the superior mediastinum. The chest tubes and central venous catheter are unchanged in pos ition. There are linear opacities in both lung bases which may represent atelectasis or infiltrates. No definite pneumothorax is visualized. Multiple bilateral rib fractures and a left clavicle fract ure are again seen. IMPRESSION: Stable exam. POS: CORNELIUS
[2020-10-11 08:37] LABS: #Lymphocytes 0.9 thou/uL (1.20-3.40); #Monocytes 0.8 thou/uL (0.11-0.59); #Neutrophils 11.3 thou/uL (1.40-6.50); %Eosinophils 0.2 % (0.0-10.0); %Lymphocytes 6.5 % (21.0-51.0); %Monocytes 6.2 % (0.0-10.0); %Neutrophils 87.1 % (42.0-75.0); Band 3 % (5-11); Lymphocytes 6 % (21-51); MDiff Complete? YES; Metamyelocyte 2 % (0-0); Monocytes 5 % (0-10); Neutrophil 82 % (42-75); Platelet Morphology Comment Appears Adequate; Polychromasia SLIGHT = 2-3 cells (100X) (0-2/hpf); Reactive Lymphocytes 2 % (0-10)
[2020-10-11] MEDS: Ferrous Sulfate 325 MG TAB PO SCH ×2 (08:48→20:10)
[2020-10-11] MEDS: Ascorbic Acid 500 mg Chewable Tablet PO SCH ×2 (08:48→20:10)
[2020-10-11] MEDS: Senokot S 8.6-50 MG TAB PO SCH ×2 (08:48→20:10)
[2020-10-11] MEDS: Polyethylene Glycol 3350 17 GM Packet PO SCH (08:48)
[2020-10-11] MEDS: Pantoprazole 40 MG VIAL IVP SCH ×2 (08:49→20:09)
--- NOTE | 2020-10-11 09:35 | PRG ---
DATE OF SERVICE: 10/11/2020 SUBJECTIVE: Mr. Muro is now 6 days out from his fall with thoracic and cervical fractures and development of weakness in both his legs with diffuse edema due to suspected anaphylaxis reaction. His overall swelling has improved significantly with Decadron treatments. He also had bilateral chest tubes placed and his hemoglobin appears to have improved. He is currently 11 today. He has continued to have little change in the neurologic function of his legs. OBJECTIVE: GENERAL: On exam this morning, he is resting comfortably, in no acute distress. VITAL SIGNS: Stable. EXTREMITIES: He is able to move his left toes slightly. His sensation is intact to light touch. His overall swelling has improved significantly. Unfortunately, he has had no change in his neurologic function despite improvement of his overall swelling. We will continue his steroid at the current rate. Okay to mobilize to the chair, PT and OT. Will check a CT myelogram thoracic spine in the morning. Job ID: [id number] MTDD
--- NOTE | 2020-10-11 10:06 | PRG ---
DATE OF SERVICE: 10/11/2020 SUBJECTIVE: Mr. Muro is resting comfortably. His diffuse edema has improved substantially. With respect to neurologic function, he continues to have left toe wiggle and some firing of left proximal musculature, although does not seem antigravity. The right leg remains much more impaired. IMPRESSION AND PLAN: We will continue with expectant management for now and begin steroid taper. Job ID: [id number]
[2020-10-11] MEDS: Cyclobenzaprine 10 MG TAB PO PRN (20:10)
[2020-10-11] MEDS: Melatonin 3 MG TAB PO PRN (20:10)
[2020-10-11] MEDS ORDERED: Ibuprofen 600 MG TAB PO SCH (20:15)
[2020-10-11] MEDS ORDERED: Ketorolac Tromethamine 30 MG/ML VIAL IVP SCH (20:15)
--- NOTE | 2020-10-11 22:02 | PRG ---
DATE OF SERVICE: 10/11/2020 SUBJECTIVE: The patient remains on the surgical floor. He is status post fall from a roof in which he sustained T5-T6 spinal fractures with resulting paraparesis. He also underwent bilateral chest tube placement for hemothoraces. Overnight, he did well. His pain is controlled. He is tolerating a diet and he has begun working with Physical and Occupational Therapy. OBJECTIVE: VITAL SIGNS: Temperature 98.1, heart rate 96, blood pressure 145/90, respirations 18, and oxygen saturation is 98% on room air. GENERAL: The patient is resting comfortably in bed. He is awake, conversant, and appropriate. Bambi Coma Scale is 15. HEENT: Improving regarding his facial swelling and ecchymosis. His eyes are open without difficulty now. His pupils are PERRLA and extraocular motion is intact. LUNGS: Clear to auscultation. Limited somewhat by his brace and his chest tubes. His chest tubes put out 43 and 45 mL of serosanguineous fluid in last 24 hours. ABDOMEN: Soft and nontender with active bowel sounds. EXTREMITIES: The patient still remains without motor function in his bilateral lower extremities with the exception of some twitch to his left foot. LABORATORY FINDINGS: White blood cell count 13.0, hemoglobin 11.8, hematocrit 35.3, and platelets 171. Sodium 138, potassium 4.0, chloride 104, CO2 of 24, BUN 26, creatinine 0.66, glucose 127, magnesium 2.5, and phosphorus 3.1. IMAGING STUDIES: AP chest x-ray shows a stable exam. ASSESSMENT AND PLAN: 1. Status post fall from roof, hospital day 6. 2. T5 and T6 spinal fractures with paraparesis. 3. Acute blood loss anemia, stable, improved. 4. Bilateral hemothoraces, status post chest tube placement. Plan will be to continue supportive care, encourage physical and occupational therapy. Plan for chest tube removal tomorrow as long as he maintains low output and stable chest x-ray. Per Neurosurgery, they plan on a myelogram in the morning also. Job ID: [id number]
[2020-10-12] MEDS: Acetaminophen 325 MG TAB PO SCH ×5 (00:53→23:19)
[2020-10-12] MEDS: Acetaminophen/Codeine 30-300mg Tablet PO SCH ×5 (00:53→23:18)
[2020-10-12] MEDS: Dexamethasone 4 mg/ml Vial SLOW IVP SCH ×2 (02:21→09:25)
[2020-10-12] MEDS ORDERED: Fentanyl 100 MCG/2 ML VIAL SLOW IVP SCH (09:15)
[2020-10-12] MEDS: Ascorbic Acid 500 mg Chewable Tablet PO SCH ×2 (09:25→20:53)
[2020-10-12] MEDS: Pantoprazole 40 MG VIAL IVP SCH ×2 (09:25→21:12)
[2020-10-12] MEDS: Ferrous Sulfate 325 MG TAB PO SCH ×2 (09:25→21:12)
[2020-10-12] MEDS: Senokot S 8.6-50 MG TAB PO SCH ×2 (09:25→20:53)
[2020-10-12] MEDS: Polyethylene Glycol 3350 17 GM Packet PO SCH (09:25)
--- NOTE | 2020-10-12 09:26 | RAD ---
PORTABLE CHEST 1 VIEW: DATE: 10/12/2020. TIME: 8:33 AM. HISTORY: Chest tube followup. FINDINGS/IMPRESSION: No significant interval change is seen since the previous day's exam. POS: NASEEM
--- NOTE | 2020-10-12 09:34 | PRG ---
DATE OF SERVICE: 10/12/2020 SUBJECTIVE: I visited Mr. Muro at the bedside on 3 tower. He continues to have not much change in the neurologic function of his lower extremities. OBJECTIVE: On exam, he is able to wiggle his left toes and appears to have some proximal flexion at the hip, although quite minimal. No motor function is appreciated on the right. PLAN: We will continue to taper his Decadron and we will get a thoracic myelogram today for additional evaluation. Job ID: [id number]
--- NOTE | 2020-10-12 11:20 | RAD ---
Procedure: Thoracic myelogram Preprocedure and procedure diagnosis: Low back pain Linen Tech: Elida Anesthesia: 10 mL of buffered 1% lidocaine Contrast: 10 mL of iodinated contrast TECHNIQUE: Prior to the procedure, the risks and benefits of a lumbar puncture and myelogram were exp lained to the patient who consented fully to the procedure. Inseam Trimming Machine Operator radiographs were performed. A radiopaque object was used to andres the site of best entry into the lumbar canal on the skin. This a cole was then prepped and draped in the usual sterile fashion. Lidocaine was used to anesthetize the skin and soft tissues down central canal. A 22-gauge spinal nee dle was then placed using fluoroscopic guidance into the central canal of the lumbar spine. After the return of clear CSF, contrast was administered which was seen outlining nerve roots. A tota l of 10 mL of contrast was administered. The needle was then removed. The patient was placed in the Trendelenburg position with contrast seen passing into the thoracic spine. There was very difficult t o get the contrast pass more proximal to the upper thoracic spine but the patient was left in Trendelenburg position for about 5 minutes prior to transferring to CT. The patient was transferred to CT for further imaging. The patient tolerated the procedure well witho ut immediate post procedure complication.
--- NOTE | 2020-10-12 12:19 | CT ---
EXAM: CT of the thoracic spine with intrathecal contrast HISTORY: Thoracic fractures with paraplegia COMPARISON: MRI of thoracic spine 10/08/2020; CT 10/05/2020 TECHNIQUE: Multiple contiguous axial images were obtained in a CT of the thoracic spine without contr ast. Sagittal and coronal reformats were performed. FINDINGS: There are fractures of the T5 and T6 vertebral bodies. These were previously described on the CT and MRI. Contrast is seen within the central canal. This contrast passes through the T5 and T6 region into the upper thoracic spine. Not much of the contrast passed into the cervical region. No contrast is seen within the thoracic cord. There is a small disc osteophyte complex versus disc fragment at the T5/6 level extending into the ce ntral canal causing moderate central canal stenosis. There is narrowing of the central canal at the T5 and T6 levels predominantly caused by thickening of the epidural soft tissues which may represent a small amount of epidural blood. No significant bony narrowing of the central canal is seen. CSF/contrast is still seen surrounding the cord in the narrowest regions of the central canal. Spinous process fractures are seen in the lower cervical and upper thoracic spine. Bilateral rib frac tures are seen. A sternal fracture is partially visualized. There is an abnormal articulation between the T6 and T7 ribs posteriorly. There is a central venous catheter with its tip in the superi or vena cava. Bibasilar dependent atelectasis is seen. Severe right hydronephrosis is again seen and may be secondary to UPJ obstruction. IMPRESSION: Burst/compression fractures of T5 and T6. There is moderate central canal stenosis at T5 and T6 predominantly secondary to epidural thickening rather than bony narrowing of the central canal.
--- NOTE | 2020-10-12 12:23 | ULT ---
BILATERAL LOWER EXTREMITY VENOUS DOPPLER ULTRASOUND: HISTORY: Bilateral lower extremity edema and pain. TECHNIQUE: Bagley scale ultrasound with color flow and spectral Doppler imaging of the deep venous systems of the lower extremities is performed bilaterally. FINDINGS: There is good flow, compression, and augmentation noted in the right common femoral, femoral, deep fe moral, popliteal, posterior tibial, and greater saphenous veins. IMPRESSION: No evidence of deep vein thrombosis in either lower extremity. POS: BETSYA
[2020-10-12] MEDS: Dexamethasone 1 MG TAB PO SCH ×4 (14:30→20:54)
--- NOTE | 2020-10-12 20:09 | PRG ---
DATE OF SERVICE: 10/12/2020 SUBJECTIVE: The patient is currently on the surgical floor. He is status post fall from a roof, in which he sustained T5 and T6 spinal fractures with resulting paraparesis. The patient also had bilateral chest tubes placed for hemothoraces. Overnight, he had no issues. He reports his pain is controlled and he is tolerating a diet. PHYSICAL EXAMINATION: VITAL SIGNS: Temperature 98.3, heart rate 90, blood pressure 138/94, respirations 16, and oxygen saturation 94% on room air. GENERAL: The patient is resting comfortably in bed. He is awake, alert, conversant, appropriate. Bambi Coma Scale is 15. HEENT: Shows improved ecchymosis of his face. LUNGS: Clear to auscultation with good inspiratory and expiratory effort. He is able to get 1000 on his incentive spirometry. He reports that it is restricted by the pain from his chest tubes. HEART: Regular rate and rhythm. ABDOMEN: Soft, nontender with active bowel sounds. EXTREMITIES: Patient still continues to have light touch sensation with essentially no motor function. This is unchanged. LABORATORY DATA: There are no labs to review this morning. RADIOGRAPHS: AP chest x-ray shows no significant interval change. ASSESSMENT/PLAN: 1. Status post fall from roof, hospital day #7. 2. T5-T6 spinal fractures resulting paraparesis. 3. Acute blood loss anemia, stable, improved. 4. Bilateral hemothoraces, status post chest tube placement. PLAN: Will be to discontinue his chest tubes this morning. He will undergo bilateral venograms of the lower extremities to rule out VT due to the patient not being able to be chemically prophylaxed. We will discuss with Neurosurgery potential timing. Otherwise, the patient may require IVC filter placement. The patient is also planned for thoracic myelogram this morning per Neurosurgery. We will begin working on placement now that the chest tubes are out. Job ID: [id number]
[2020-10-12] MEDS: Cyclobenzaprine 10 MG TAB PO PRN (20:53)
[2020-10-13] MEDS: Acetaminophen 325 MG TAB PO SCH ×3 (05:41→17:07)
[2020-10-13] MEDS: Acetaminophen/Codeine 30-300mg Tablet PO SCH ×3 (05:42→17:08)
--- NOTE | 2020-10-13 08:57 | RAD ---
Portable frontal chest radiograph: 10/13/2020 COMPARISON: 10/12/2020 HISTORY: Trauma patient, reevaluate chest following chest tube removal FINDINGS: Curvilinear radiopaque density overlies bilateral lung apices, limiting detailed assessment . No obvious pneumothorax is appreciated on either side. There is a mildly displaced medial left clavicle fracture. There is a right vascular catheter with distal tip overlying the region of the SVC . Bilateral chest tubes have been removed since the prior exam. Asymmetric linear densities are noted within both lung bases suggesting volume loss or less likely infiltrate, left greater than righ t. Impression: Portable chest radiograph as detailed above.
[2020-10-13] MEDS: Polyethylene Glycol 3350 17 GM Packet PO SCH (09:28)
[2020-10-13] MEDS: Pantoprazole 40 MG VIAL IVP SCH ×2 (09:28→21:33)
[2020-10-13] MEDS: Dexamethasone 1 MG TAB PO SCH ×4 (09:29→21:32)
[2020-10-13] MEDS: Ascorbic Acid 500 mg Chewable Tablet PO SCH ×2 (09:29→21:31)
[2020-10-13] MEDS: Senokot S 8.6-50 MG TAB PO SCH ×2 (09:29→21:32)
[2020-10-13] MEDS: Ferrous Sulfate 325 MG TAB PO SCH ×2 (09:29→21:41)
[2020-10-13] MEDS: Cyclobenzaprine 10 MG TAB PO PRN ×2 (09:44→21:31)
--- NOTE | 2020-10-13 12:30 | PRG ---
DATE OF SERVICE: 10/13/2020 Mr. Muro is clinically unchanged. He has toe wiggle and proximal left leg strength. On the right, he has minimal motor at this time. We obtained a new thoracic myelogram to better define the degree of cord compression. At the T5-T6 level, the degree of stenosis is moderate. There is CSF signal fully surrounding the cord throughout. IMPRESSION AND PLAN: It remains my opinion that surgery would not likely be a benefit given the lack of severe compression. I believe the myelogram confirms this. Hopefully, he will continue to improve as his systemic edema resolves. He will need aggressive physical therapy and can now be fully mobilized in his AUTOMATIC LATHE TENDER brace. We will wean his Decadron and he will need rehab. Job ID: [id number]
--- NOTE | 2020-10-13 17:27 | PRG ---
DATE OF SERVICE: 10/13/2020 SUBJECTIVE: The patient remains on the surgical floor. He is status post fall from a roof, in which he sustained a T5-T6 spinal fractures with resulting paraparesis. Yesterday, he underwent a myelogram that confirmed that he had no cord compression and minimal canal stenosis with Dr. Pierce continuing with nonoperative treatment and beginning aggressive physical therapy will be in the patient's best interest. The patient had his chest tubes removed yesterday, which has improved his inspirations and use of his incentive spirometry up to 1999 now. He is tolerating a diet. His pain is controlled and he is awaiting therapy today to sit him in a chair. PHYSICAL EXAMINATION: VITAL SIGNS: Temperature is 98.0, heart rate 96, blood pressure 122/82, respirations 16, and oxygen saturation is 96% on room air. GENERAL: The patient is resting comfortably in bed. He is awake, alert, conversant. Bambi Coma Scale is 15. HEENT: Shows continued resolution of ecchymosis. LUNGS: Clear to auscultation bilaterally. HEART: Regular rate and rhythm. ABDOMEN: Soft, nontender with active bowel sounds. EXTREMITIES: The patient still has bilateral sensation to light touch with twitch movement of his left foot and on the left. The right still shows no motion. LABORATORY DATA: There are no labs to review this morning. RADIOGRAPHS: AP chest x-ray shows no pneumothorax or hemothorax. ASSESSMENT AND PLAN: 1. Status post fall from roof hospital day 8. 2. T5-T6 spinal fracture resulting in paraparesis, stable, slightly improved. 3. Acute blood loss anemia, stable, improved. 4. Bilateral hemothoraces, status post chest tube removal, stable. PLAN: Plan will be to continue supportive care. Encourage physical and occupational therapy. We will begin Lovenox today after discussion with Neurosurgery. We will notify Case Management that the patient is clear for inpatient rehab. Job ID: [id number]
[2020-10-14] MEDS: Acetaminophen/Codeine 30-300mg Tablet PO SCH ×5 (00:09→23:11)
[2020-10-14] MEDS: Acetaminophen 325 MG TAB PO SCH ×5 (00:10→23:10)
[2020-10-14] MEDS: Enoxaparin Sodium 40 MG/0.4 ML SYRINGE SC SCH (08:43)
[2020-10-14] MEDS: Ferrous Sulfate 325 MG TAB PO SCH ×2 (08:44→20:32)
[2020-10-14] MEDS: Pantoprazole 40 MG VIAL IVP SCH ×2 (08:44→20:34)
[2020-10-14] MEDS: Ascorbic Acid 500 mg Chewable Tablet PO SCH ×2 (08:45→20:33)
[2020-10-14] MEDS: Senokot S 8.6-50 MG TAB PO SCH ×2 (08:45→20:33)
[2020-10-14] MEDS: Polyethylene Glycol 3350 17 GM Packet PO SCH (08:45)
[2020-10-14] MEDS: Dexamethasone 1 MG TAB PO SCH ×3 (08:45→20:32)
--- NOTE | 2020-10-14 09:34 | PRG ---
DATE OF SERVICE: 10/14/2020 This is a patient on [facility]. He has his new CT LSO brace and he reports this appears to be providing him more support and overall improving his pain level. He has had no change in his neurologic function in the lower extremities. The CT myelogram of the thoracic spine showed only a moderate degree of compression at T5-T6 with CSF leak surrounding the cord. Overall, his degree of compression of thoracic and spine is quite moderate. We will continue to trend down his Decadron, they are not planning on any surgical intervention. We should continue to work with PT and work towards rehab. Job ID: [id number] [facility]
[2020-10-14 10:55] LABS: Hemoglobin 15.3 g/dL (14.0-18.0); Mean Corpuscular Hemoglobin 31.2 pg (27.0-31.0); Mean Corpuscular Volume 91.9 fL (78.0-98.0); RBC Distribution Width 12.9 % (11.5-14.5); Red Blood Cell (RBC) Count 4.91 mill/uL (4.70-6.10)
[2020-10-14 11:15] LABS: Phosphorus 4.8 mg/dL (2.3-4.7)
[2020-10-14] MEDS ORDERED: Enoxaparin Sodium 40 MG/0.4 ML SYRINGE SC SCH (11:15)
[2020-10-14 11:19] LABS: Anion Gap 15 mmol/L (10-20); BUN (Urea Nitrogen) 28 mg/dL (8.4-25.7); CK (CPK) 44 U/L (30-200); Calc. Creatinine Clearance 142 mL/min (70-130); Calcium 8.6 mg/dL (7.8-10.44); Carbon Dioxide 23 mmol/L (22-29); Chloride 100 mmol/L (98-107); Estimated GFR-MDRD Greater than 90; Glucose 141 mg/dL (70-105); Magnesium 2.5 mg/dL (1.6-2.6); Sodium 134 mmol/L (136-145)
[2020-10-14 11:21] LABS: Eosinophils 4 % (0-10); Lymphocytes 8 % (21-51); MDiff Complete? YES; Mean Platelet Volume 6.9 fL (7.4-10.4); Monocytes 10 % (0-10); Neutrophil 77 % (42-75); Platelet Count 243 thou/uL (130-400); Platelet Morphology Comment Appears Adequate; Reactive Lymphocytes 1 % (0-10); White Blood Cell (WBC) Count 18.6 thou/uL (4.8-10.8)
[2020-10-14 12:10] LABS: Bacteria/HPF None Seen HPF (None Seen); Bilirubin Negative (Negative); Blood, Urine Negative (Negative); Clarity Clear (Clear); Glucose, Urine (Dipstick) Normal (Negative); Ketone, Urine Negative (Negative); Leukocyte Negative Leu/uL (Negative); Nitrite Negative (Negative); Protein, Urine (Dipstick) Negative (Neg-Trace); RBC/HPF 0-3 HPF (0-3); Squamous Epithelial None Seen HPF (0-3); Urobilinogen Greater than 12 mg/dL (Less than 2); WBC/HPF 0-3 HPF (0-3)
[2020-10-14 12:13] LABS: Urine Culture Reflex No No
--- NOTE | 2020-10-14 22:29 | PRG ---
DATE OF SERVICE: 10/14/2020 SUBJECTIVE: The patient remains on the surgical floor. He is hospital day 9, status post fall from a roof, in which he sustained T5-T6 spinal fractures with resulting paraparesis. The patient continues to attempt to work with Physical and Occupational Therapy as much as he is able to. He has been able to get out of bed to a chair. He also had his brace changed to a CTLSO brace, which he reports is more comfortable. The patient continues to work with his incentive spirometry. He is voiding without difficulty, but has not had a bowel movement yet. OBJECTIVE: VITAL SIGNS: Temperature is 97.9, heart rate 90, blood pressure 106/70, respirations 16, and oxygen saturation is 96% on room air. GENERAL: The patient is resting comfortably in bed. He is awake, alert, and oriented. Safford Coma Scale is 15. The patient is in good spirits. He demonstrated that he can get to approximately 1250 on his incentive spirometry. HEENT: Unchanged. LUNGS: Clear to auscultation bilaterally. HEART: Regular rate and rhythm. ABDOMEN: Soft with active bowel sounds. EXTREMITIES: Unchanged. The patient still has paraparesis, right greater than left. He still has some toe twitch and quad firing. LABORATORY FINDINGS: White blood cell count 18.6, hemoglobin 15.3, hematocrit 45.1, and platelets 243. Sodium 134, potassium 4.0, chloride 100, CO2 of 23, BUN 28, creatinine 0.67, glucose 141, magnesium 2.5, phosphorus 4.8, and CK 44. IMAGING DATA: There are no radiographs to review this morning. ASSESSMENT AND PLAN: 1. Status post fall from roof, hospital day 9. 2. T5-T6 spinal fracture resulting in paraparesis, stable. 3. Acute blood loss anemia, stable, improved. 4. Bilateral hemothoraces, status post chest tube removal, stable. Plan will be to continue supportive care. Encourage physical and occupational therapy. The patient was started on Lovenox for chemical VTE prophylaxis. We have increased his lactulose. We will repeat his labs tomorrow and his chest x-ray in light of his elevated white blood cell count. We will also do a CBC with manual differential. Job ID: [id number]
[2020-10-14] MEDS: Cyclobenzaprine 10 MG TAB PO PRN (23:10)
[2020-10-15 06:04] LABS: ALT (SGPT) 291 U/L (8-55); AST (SGOT) 83 U/L (5-34); Albumin 3.4 g/dL (3.5-5.0); Alkaline Phosphatase 328 U/L (40-110); Bilirubin, Total 4.8 mg/dL (0.2-1.2); Protein, Total 6.4 g/dL (6.0-8.3)
[2020-10-15 06:08] LABS: Anion Gap 12 mmol/L (10-20); BUN (Urea Nitrogen) 30 mg/dL (8.4-25.7); Calc. Creatinine Clearance 159 mL/min (70-130); Calcium 8.3 mg/dL (7.8-10.44); Carbon Dioxide 26 mmol/L (22-29); Chloride 101 mmol/L (98-107); Estimated GFR-MDRD Greater than 90; Glucose 128 mg/dL (70-105); Magnesium 2.3 mg/dL (1.6-2.6); Phosphorus 3.6 mg/dL (2.3-4.7); Potassium 4.2 mmol/L (3.5-5.1); Sodium 135 mmol/L (136-145)
[2020-10-15] MEDS: Acetaminophen/Codeine 30-300mg Tablet PO SCH ×3 (06:16→18:23)
[2020-10-15] MEDS: Acetaminophen 325 MG TAB PO SCH ×3 (06:17→18:22)
[2020-10-15 06:40] LABS: Band 1 % (5-11); Eosinophils 5 % (0-10); Lymphocytes 7 % (21-51); MDiff Complete? YES; Mean Corpuscular HGB CONC 34.4 g/dL (32.0-36.0); Mean Corpuscular Hemoglobin 31.8 pg (27.0-31.0); Mean Corpuscular Volume 92.5 fL (78.0-98.0); Mean Platelet Volume 6.9 fL (7.4-10.4); Monocytes 3 % (0-10); Neutrophil 84 % (42-75); Platelet Count 254 thou/uL (130-400); Platelet Morphology Comment Appears Adequate; RBC Distribution Width 13.1 % (11.5-14.5); Red Blood Cell (RBC) Count 4.71 mill/uL (4.70-6.10)
[2020-10-15] MEDS ORDERED: Bisacodyl 10 MG SUPP PR SCH (07:45)
[2020-10-15] MEDS ORDERED: Enoxaparin Sodium 40 MG/0.4 ML SYRINGE SC SCH (09:00)
[2020-10-15] MEDS: Dexamethasone 1 MG TAB PO SCH ×3 (09:20→20:45)
[2020-10-15] MEDS: Ascorbic Acid 500 mg Chewable Tablet PO SCH ×2 (09:21→20:46)
[2020-10-15] MEDS: Ferrous Sulfate 325 MG TAB PO SCH ×2 (09:21→20:45)
[2020-10-15] MEDS: Enoxaparin Sodium 40 MG/0.4 ML SYRINGE SC SCH (09:21)
[2020-10-15] MEDS: Senokot S 8.6-50 MG TAB PO SCH ×2 (09:21→20:46)
[2020-10-15] MEDS: Polyethylene Glycol 3350 17 GM Packet PO SCH (09:22)
--- NOTE | 2020-10-15 20:03 | ULT ---
RIGHT UPPER QUADRANT ULTRASOUND CLINICAL HISTORY: Evaluate for biliary disease. COMPARISON: CT of the chest, abdomen and pelvis dated October 09, 2020 FINDINGS: Overlying bowel gas and patient's inability to move due to a spinal fracture limits image d etail. Liver:Limited visualization the liver. No focal mass identified. Intrahepatic bile ducts: No intrahepatic or extrahepatic biliary dilation.; Common bile duct: 3.8 mm. Gallbladder: Normal appearing. Duarte's sign:None Main portal vein:Patent with hepatopedal flow. Pancreas:Visualized pancreas appears normal. Right kidney: Right kidney measures 12.9 x 6.2 x 7.1 cm. There is stable prominent pelvocaliectasis i nvolving the right kidney. Additional findings: The bladder is distended with a prevoid bladder volume of 1644 cc. IMPRESSION: 1. No acute sonographic abnormality involving the gallbladder. 2. Stable prominent right-sided pelvocaliectasis. 3. New prominent distention of the bladder.
[2020-10-15] MEDS: Gabapentin 300 MG CAP PO SCH ×4 (21:10→21:32)
[2020-10-16] MEDS: Acetaminophen/Codeine 30-300mg Tablet PO SCH ×3 (00:33→23:43)
[2020-10-16] MEDS: Acetaminophen 325 MG TAB PO SCH ×5 (00:34→23:43)
--- NOTE | 2020-10-16 05:59 | PRG ---
DATE OF SERVICE: 10/15/2020 SUBJECTIVE: Mr. Muro is a 55-year-old gentleman, on hospital day 10 status post fall from roof, during which he sustained T5 to T6 spinal fractures and resulting in paraparesis. He continues to work with PT and OT who are working on balance, core strengthening, and endurance at this time. He has been able to get out of bed to chair and to sit on the edge of the bed. Earlier this week, he had his brace changed to a CTLSO brace, which he reported is more comfortable. He is using his incentive spirometer. He is voiding without difficulty and he has now had 3 bowel movements this morning. OBJECTIVE: VITAL SIGNS: Temperature 98.0, pulse 99, respirations 16, 98% on room air, blood pressure 111/76. GENERAL: Resting comfortably in bed with CTLSO brace in place. He is awake, alert, and oriented. GCS 15. He is pleasant and conversant. HEENT: Unchanged. EXTREMITIES: Unchanged. Still has paraparesis. He has minimal toe twitch this morning, but does demonstrate quad firing, especially on the left. LABORATORY DATA: WBC 19.0, hemoglobin 15.0, hematocrit 43.6, platelets 254. Sodium 135, potassium 4.2, chloride 101, BUN 30, creatinine 0.6, glucose 128, total bilirubin 4.8, direct bili 3.0, AST 83, ALT 291, alkaline phosphatase 328, albumin 3.4. IMAGING: No imaging to review this morning. ASSESSMENT: 1. Status post fall from roof, hospital day #10. 2. T5-T6 spinal fracture resulting in paraparesis, stable. 3. Acute blood loss anemia, stable and improved. 4. Bilateral hemothoraces, status post chest tube removal, stable. PLAN: The plan will be continue with supportive care. Continue physical and occupational therapy. He was started on Lovenox earlier this week for chemical VTE prophylaxis. We will request a trapeze to be placed above his bed so that he can begin to work on his upper extremity strength. Job ID: [id number]
[2020-10-16 08:51] LABS: PTT 23.6 sec (22.9-36.1); Prothrombin Time 13.9 sec (12.0-14.7)
[2020-10-16 08:52] LABS: #Eosinphils 0.3 thou/uL (0.0-0.7); #Lymphocytes 1.3 thou/uL (1.20-3.40); #Monocytes 0.6 thou/uL (0.11-0.59); #Neutrophils 12.6 thou/uL (1.40-6.50); %Basophils 0.1 % (0.0-1.0); %Eosinophils 2.1 % (0.0-10.0); %Lymphocytes 8.5 % (21.0-51.0); %Monocytes 4.3 % (0.0-10.0); Hemoglobin 14.2 g/dL (14.0-18.0); Mean Corpuscular HGB CONC 32.1 g/dL (32.0-36.0); Mean Corpuscular Hemoglobin 29.9 pg (27.0-31.0); Mean Corpuscular Volume 93.2 fL (78.0-98.0); Platelet Count 282 thou/uL (130-400); RBC Distribution Width 13.1 % (11.5-14.5); Red Blood Cell (RBC) Count 4.73 mill/uL (4.70-6.10); White Blood Cell (WBC) Count 14.8 thou/uL (4.8-10.8)
[2020-10-16 09:04] LABS: Anion Gap 13 mmol/L (10-20); BUN (Urea Nitrogen) 32 mg/dL (8.4-25.7); Calc. Creatinine Clearance 138 mL/min (70-130); Calcium 8.7 mg/dL (7.8-10.44); Carbon Dioxide 28 mmol/L (22-29); Chloride 98 mmol/L (98-107); Estimated GFR-MDRD Greater than 90; Glucose 110 mg/dL (70-105); Magnesium 2.3 mg/dL (1.6-2.6); Potassium 4.4 mmol/L (3.5-5.1); Sodium 135 mmol/L (136-145)
[2020-10-16 09:05] LABS: ALT (SGPT) 228 U/L (8-55); AST (SGOT) 50 U/L (5-34); Albumin 3.3 g/dL (3.5-5.0); Alkaline Phosphatase 345 U/L (40-110); Bilirubin, Direct 3.1 mg/dL (0.1-0.3); Phosphorus 3.7 mg/dL (2.3-4.7); Protein, Total 6.3 g/dL (6.0-8.3)
--- NOTE | 2020-10-16 11:23 | NM ---
HEPATOBILIARY SCAN: HISTORY:Biliary dyskinesia. Normal-appearing gallbladder on ultrasound dated 10/15/2020 RADIOPHARMACEUTICAL: 5 mCi Technetium 99m Mebrofenin injected intravenously FINDINGS: There is normal tracer extraction by the liver with normal excretion into the biliary tracts and smal l bowel loops and normal filling of the gallbladder. The calculated gallbladder ejection fraction following an intravenous infusion of 1.6 mcg CCK-8 over 30 minutes measures 20%. The patient was also pretreated with 1.6 mcg of CCK-8 intravenously, 20 minutes prior to the exam. IMPRESSION:Chronic acalculous cholecystitis/gallbladder dyskinesia
[2020-10-16 11:26] VITALS: BMI 29.9
[2020-10-16] MEDS: Senokot S 8.6-50 MG TAB PO SCH ×2 (11:36→20:21)
[2020-10-16] MEDS: Ferrous Sulfate 325 MG TAB PO SCH ×2 (11:36→20:21)
[2020-10-16] MEDS: Ascorbic Acid 500 mg Chewable Tablet PO SCH ×2 (11:36→20:21)
[2020-10-16] MEDS: Polyethylene Glycol 3350 17 GM Packet PO SCH (13:55)
[2020-10-16] MEDS: Dexamethasone 1 MG TAB PO SCH ×2 (14:19→20:20)
[2020-10-16] MEDS: Acetaminophen/Codeine 30-300mg Tablet PO PRN (14:21)
[2020-10-16] MEDS ORDERED: Sodium Chloride 0.9% 1,000 ML IV SCH (14:45)
--- NOTE | 2020-10-16 17:13 | PRG ---
DATE OF SERVICE: 10/16/2020 SUBJECTIVE: The patient was seen this afternoon during rounds. He is status post HIDA scan. At the time of my evaluation, the patient had been n.p.o. and reports that he was feeling thirsty. The patient states that he felt like he needed to have a bowel movement. Torres catheter still in place with dark urine in bag. States pain is well controlled. The patient also has a CTLSO brace in place and fitting appropriately. OBJECTIVE: VITAL SIGNS: Temperature 97.5, pulse 99, respirations 16, oxygen saturation 91% on room air, and blood pressure 154/86. GENERAL: Well-appearing middle-aged male, lying in bed with no signs of acute distress. PULMONARY: Equal chest rise and fall. No signs of acute respiratory distress. ABDOMEN: Soft, nontender, nondistended. EXTREMITIES: 2+ pulses in all extremities. Gross motor and sensation intact in bilateral upper extremities. Motor strength 0/5 in the bilateral lower extremities. His sensation is intact in bilateral lower extremities. : The patient has Torres in place with dark urine in bag. NEUROLOGIC: GCS is 15. LABORATORY FINDINGS: White count 14.8, hemoglobin 14.2, hematocrit 44.1, and platelets 128. Sodium 135, potassium 4.4, chloride 98, bicarb 28, BUN 32, creatinine 0.96, glucose 110, phosphorus 3.7, magnesium 2.3, total bilirubin 5.0, AST 50, ALT 228. DIAGNOSTIC FINDINGS: Ultrasound of the abdomen demonstrates no acute sonographic abnormalities involving the gallbladder, stable prominent right-sided pelvocaliectasis, new prominent distention of the bladder. HIDA scan demonstrates chronic acalculous cholecystitis, gallbladder dyskinesis. The patient's ejection fraction is 20%. ASSESSMENT: 1. Status post fall from roof. 2. Bilateral pneumothoraces. 3. Bilateral hemothoraces, status post chest tubes. 4. Sternal fracture with retrosternal hematoma. 5. Extensive scalp hematoma, improving. 6. Left clavicle fracture, nonoperative. 7. C7 endplate fracture. 8. T1, T2, T5, and T6 vertebral body fractures. 9. C7 and T1, T3, and T4 spinous process fractures. 10. Allergic reaction, etiology unknown. 11. Bilateral lower extremity paralysis. 12. Urinary retention with associated postobstructive diuresis, now with Torres in place. 13. Transaminitis and hyperbilirubinemia, etiology unknown. PLAN: Continue current regular diet. The patient to receive 1 L of normal saline over 4 hours as he has been n.p.o. and has a significant amount of urinary output since Torres placement yesterday. Continue physical and occupational therapy. Repeat blood work in the morning. This patient was discussed with Dr. Monsalve before this dictation. Job ID: [id number]
[2020-10-16] MEDS: Enoxaparin Sodium 40 MG/0.4 ML SYRINGE SC SCH (17:25)
[2020-10-17] MEDS: Acetaminophen 325 MG TAB PO SCH ×2 (05:28→12:04)
[2020-10-17] MEDS: Acetaminophen/Codeine 30-300mg Tablet PO SCH ×2 (05:28→12:06)
[2020-10-17 06:11] LABS: Band 1 % (5-11); Hemoglobin 12.8 g/dL (14.0-18.0); Lymphocytes 14 % (21-51); MDiff Complete? YES; Mean Corpuscular HGB CONC 34.1 g/dL (32.0-36.0); Mean Corpuscular Hemoglobin 31.8 pg (27.0-31.0); Mean Corpuscular Volume 93.3 fL (78.0-98.0); Mean Platelet Volume 6.5 fL (7.4-10.4); Metamyelocyte 3 % (0-0); Monocytes 10 % (0-10); Neutrophil 72 % (42-75); Nucleated RBC 1 % (0); Platelet Count 279 thou/uL (130-400); Platelet Morphology Comment Appears Adequate; RBC Distribution Width 13.1 % (11.5-14.5); Red Blood Cell (RBC) Count 4.01 mill/uL (4.70-6.10); White Blood Cell (WBC) Count 12.9 thou/uL (4.8-10.8)
[2020-10-17 06:26] LABS: ALT (SGPT) 186 U/L (8-55); AST (SGOT) 52 U/L (5-34); Alkaline Phosphatase 370 U/L (40-110); Anion Gap 11 mmol/L (10-20); BUN (Urea Nitrogen) 27 mg/dL (8.4-25.7); Bilirubin, Direct 2.2 mg/dL (0.1-0.3); Bilirubin, Total 3.7 mg/dL (0.2-1.2); Calc. Creatinine Clearance 161 mL/min (70-130); Carbon Dioxide 24 mmol/L (22-29); Chloride 102 mmol/L (98-107); Estimated GFR-MDRD Greater than 90; Glucose 108 mg/dL (70-105); Magnesium 2.2 mg/dL (1.6-2.6); Phosphorus 3.3 mg/dL (2.3-4.7); Potassium 4.2 mmol/L (3.5-5.1); Protein, Total 5.6 g/dL (6.0-8.3); Sodium 133 mmol/L (136-145)
[2020-10-17] MEDS ORDERED: PHOS-NAK 1 PKT PACK PO SCH (07:45)
[2020-10-17] MEDS: Ferrous Sulfate 325 MG TAB PO SCH (09:27)
[2020-10-17] MEDS: Senokot S 8.6-50 MG TAB PO SCH (09:27)
[2020-10-17] MEDS: Polyethylene Glycol 3350 17 GM Packet PO SCH (09:27)
[2020-10-17] MEDS: Dexamethasone 1 MG TAB PO SCH (09:27)
[2020-10-17] MEDS: Ascorbic Acid 500 mg Chewable Tablet PO SCH (09:27)
[2020-10-17] MEDS: Enoxaparin Sodium 40 MG/0.4 ML SYRINGE SC SCH (09:28)
[2020-10-17 11:47] VITALS: BP 110/70
[2020-10-17 15:51] VITALS: TEMP 97.9
--- NOTE | 2020-10-18 02:28 | DIS ---
DATE OF ADMISSION: 10/05/2020 DATE OF DISCHARGE: 10/17/2020 ADMITTING ATTENDING: Young Monsalve DO DISCHARGE ATTENDING: Young Monsalve DO CONSULT: Neurosurgery, Dr. Pierce. Ortho, Dr. Painting. PROCEDURES: Multiple imaging studies as below. Bilateral tube thoracostomies. IMAGING RESULTS: 1. CT angio neck on 10/05/2020, extensive spinal fractures including probable superior endplate C7 fracture, multiple spinous process fractures including C7, T1, T3, T4, as well as vertebral body fractures at T1, T5, and T6. The T5 fractures extend into the bilateral pars interarticularis. There are bilateral rib fractures seen as well as manubrial fracture and left clavicle fracture. Extensive posterior mediastinal hematoma. No acute arterial abnormality seen within the neck. 2. CT brain with and without contrast on 10/05, extensive prominent scalp hematoma with no associated fracture or intracranial hemorrhage. 3. CT cervical spine on 10/05, findings suggestive of mediastinal hematoma. Fractures involving the spinous processes at C7, T1, and T3. Questionable mild superior endplate fracture of C7 and an anterior wedge compression fracture with mild loss of vertebral body height anteriorly at the T2 level. There is also fracture of the left clavicular head as well as bilateral 1st rib fractures and a left 2nd rib fracture. 4. CT facial bones without contrast on 10/05, no maxillofacial bone fracture seen. 5. CT chest, abdomen, and pelvis on 10/05, unstable burst fractures of T5 and T6 with mild kyphotic angulation indicative of instability. Extension of the T5 fracture through the superior facets with mild displacement. Mild compromise of the central spinal canal. Extensive additional fractures of spinous processes of sternum, left clavicle, and ribs. Tiny bilateral pneumothoraces. No acute intraabdominal injury. Right renal stones with chronic appearance of right hydronephrosis. Anterior and posterior mediastinal hematomas associated with sternal and spinal fractures. 6. MRI cervical spine on 10/05, fracture deformities of the cervical and thoracic spine, better assessed on recent CT. No focal area of abnormal signal intensity within the cervical cord. Extensive severe posterior ligamentous injury from the occiput through the upper thoracic spine with extensive posterior muscle injury. Prominent prevertebral fluid suggesting ligamentous injury, the degree of which is likely tracking up from the thoracic spine. 7. MRI thoracic spine on 10/05, extensive fracture deformities involving the thoracic spine, most severe at T5 and T6, better assessed on recent CT. Severe central canal stenosis at the T5-T6 level with focal area of increased T2 signal within the thoracic cord consistent with an acute thoracic cord injury. Extensive posterior ligamentous and muscle injury. 8. MRI lumbar spine on 10/05, degenerative changes within the lumbar spine. No evidence for acute lumbar spine fracture. 9. MRI cervical spine on 10/08, edema in the T1, T2, T3, and T4 vertebrae seen on sagittal T2 images consistent with fracture without significant loss of height. Increasing prevertebral edema in cervical spine from C1-C2 through C4-5. Extensive edema within the posterior musculature, not significantly changed. Prevertebral edema from C7 into the thoracic spine, similar to previous exam. No acute cord edema or change identified. 10. MRI thoracic spine on 10/08, increasing compression of the cord at T5-T6 when compared to 10/05, now mild kinking of the cord and increased T2 signal within the cord when compared to the prior study. Other posttraumatic changes do not appear significantly changed. 11. CT chest on 10/09, small bilateral hemothoraces with adjacent atelectasis, small bilateral pneumothoraces. No evidence of acute intraabdominal or pelvic abnormality. Chronic right UPJ obstruction with nonobstructing calcifications in the right kidney. Multiple fractures, stable compared with prior trauma 12. CT. Myelogram, thoracic spine on 10/12, burst compression fractures of T5 and T6. Moderate central canal stenosis at T5 and T6, predominantly secondary to epidural thickening rather than bony narrowing of the central canal. Bilateral lower extremity venous Dopplers on 10/12 without evidence of DVT. 13. Right upper quadrant ultrasound on 10/15, no sonographic abnormalities involving the gallbladder. Stable prominent right-sided pelvocaliectasis. New prominent distention of the bladder. 14. HIDA scan on 10/16, chronic acalculous cholecystitis and gallbladder dyskinesia with gallbladder ejection fraction 20%. 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 Status post fall from the roof. 2. Bilateral pneumothoraces. 3. Bilateral hemothoraces. 4. Sternal fracture with retrosternal hematoma. 5. Extensive scalp hematoma. 6. Left clavicle fracture, nonoperative. 7. C7 endplate fracture. 8. Vertebral body fractures of T1, T2, T5, and T6. 9. Spinous process fractures of C7, T1, T3, and T4. 10. Allergic reaction, etiology unknown. 11. Urinary retention with postobstructive diuresis. 12. Transaminitis. DISCHARGE MEDICATIONS: 1. Tylenol No. 3 300/30 mg 1 tab p.o. q.6 hours. 2. Tylenol No. 3 300/30 mg 1 tab p.o. q.6 hours p.r.n. 3. Decadron 2 mg p.o. b.i.d. for 1 day. 4. Decadron 1 mg p.o. b.i.d. for 2 days. 5. Ferrous sulfate 325 mg p.o. b.i.d. 6. Flexeril 10 mg p.o. t.i.d. p.r.n. 7. Lovenox 40 mg subcu daily. 8. Melatonin 6 mg p.o. at bedtime p.r.n. 9. MiraLAX 17 g pack daily. 10. Protonix 40 mg p.o. daily. 11. Senokot 1 tab p.o. b.i.d. 12. Tylenol 325 mg p.o. q.6 hours. 13. Vitamin C 500 mg p.o. b.i.d. Discontinued medications: None. HISTORY OF PRESENT ILLNESS AND HOSPITAL COURSE: This is a 55-year-old gentleman, who presented to the hospital by air ambulance after falling one story from a roof. Initially, he was unable to move his legs, but upon arrival to the ER, he was able to move all 4 extremities. ER evaluation revealed spinous process fractures of C7, T1, and T3; compression fractures of C7 and T2; bilateral pneumothoraces; bilateral 1st rib fractures, left clavicular head fracture along with multiple contusions and abrasions. Neurosurgery was consulted and placed patient on spinal precautions pending fitting of a CTLSO brace. Ortho was also consulted for the clavicular fracture which was managed nonoperatively. Subsequent imaging review also revealed burst fractures of T5 and T6 and nondisplaced sternal fracture. Once the CTLSO brace had been fitted, he was able to be mobilized independently with PT and OT. On post-injury day 3, he developed acute whole body edema with anaphylaxis and was transferred to the ICU where he was started on high-dose steroids and vasopressor support. The etiology of this reaction is unknown. Gabapentin and tramadol were added to his allergy list. Post-injury day 4, he was noted to have a hemoglobin drop of [address] chest revealed bilateral hemothoraces. He was transfused 2 units of packed red blood cells and bilateral tube thoracostomies were placed. Post-injury day 5, he was stable and transferred back to surgical floor for continued therapies. Myelogram revealed moderate stenosis at T5-T6 and no evidence of severe cord compression. Nonsurgical per evaluation by Neurosurgery. Post-injury day 10, he was noted to have significant elevation of his liver enzymes, although was asymptomatic. Abdominal ultrasound was performed which did not reveal any acute hepatobiliary issue, although significant bladder distention was noted. Straight cath was performed and Torres was then placed. He subsequently had almost 5 L of postobstructive diuresis over the following 24 hours. Due to his continued transaminitis, HIDA scan was performed, which revealed chronic acalculous cholecystitis. In the absence of symptoms, no interventions were performed. He otherwise remained stable, continued to participate in therapies, and was ultimately discharged to an inpatient rehab facility. Neuro rehab was considered, although patient's family preferred to go to rehab local. PHYSICAL EXAMINATION: VITAL SIGNS: Temp 98.2, heart rate 93, respirations 16, O2 saturation 97% on room air, blood pressure 110/70. GENERAL: Well-appearing middle-aged male, sitting on the edge of the bed with the assistance of Physical Therapy. No signs of acute distress. PULMONARY: Equal chest rise and fall. No signs of acute respiratory distress. ABDOMEN: Soft, nontender, nondistended, partially covered by CTLSO brace. EXTREMITIES: 2+ pulses in all extremities. Gross motor and sensation intact in bilateral upper extremities. Motor strength 0/5 in the bilateral lower extremities. Sensation intact in bilateral lower extremities. NEUROLOGIC: GCS is 15. DISPOSITION: Stable. DISCHARGE INSTRUCTIONS: Location: Inpatient rehab. Diet: Regular diet with Ensure 3 times daily for supplementation. Activity: Strict spinal precautions with CTLSO brace on at all times. Otherwise, activity as tolerated. Followup: Follow up with Dr. Monsalve on 10/30 at 2 p.m. follow up with Neurosurgery, Dr. Pierce. Follow up with Kwan Owens. Job ID: [id number] [facility]ITALFélix
[2020-10-18] MEDS ORDERED: Dexamethasone 1 MG TAB PO SCH (09:00)
[2020-10-20] MEDS ORDERED: Dexamethasone 1 MG TAB PO SCH (09:00)
== END 2020-10-17 16:36 | DRG 964 ==
LOC: ERS 18:06 → EDBD 19:03 → SURG A 19:03 → CCU 10-08 03:45 → SURG B 10-10 11:59
PROVIDERS: ADMIT Surgery; ATTEND Surgery
PROC: 02H633Z Insertion of Infusion Device into Right Atrium, Percutaneous Approach (ICD-10-PCS; 2020-10-08)
PROC: 0W9B00Z Drainage of Left Pleural Cavity with Drainage Device, Open Approach (ICD-10-PCS; principal; 2020-10-09)
PROC: 0W9900Z Drainage of Right Pleural Cavity with Drainage Device, Open Approach (ICD-10-PCS; 2020-10-09)
PROC: 30233N1 Transfusion of Nonautologous Red Blood Cells into Peripheral Vein, Percutaneous Approach (ICD-10-PCS; 2020-10-09)
DX: S27.2XXA Traumatic hemopneumothorax, initial encounter (principal); S24.102A Unspecified injury at T2-T6 level of thoracic spinal cord, initial encounter; S22.049A Unspecified fracture of fourth thoracic vertebra, initial encounter for closed fracture; S22.019A Unspecified fracture of first thoracic vertebra, initial encounter for closed fracture; S22.20XA Unspecified fracture of sternum, initial encounter for closed fracture; S12.600A Unspecified displaced fracture of seventh cervical vertebra, initial encounter for closed fracture; S22.039A Unspecified fracture of third thoracic vertebra, initial encounter for closed fracture; S22.029A Unspecified fracture of second thoracic vertebra, initial encounter for closed fracture; S22.32XA Fracture of one rib, left side, initial encounter for closed fracture; S22.31XA Fracture of one rib, right side, initial encounter for closed fracture; S22.051A Stable burst fracture of T5-T6 vertebra, initial encounter for closed fracture; S27.892A Contusion of other specified intrathoracic organs, initial encounter; G82.20 Paraplegia, unspecified; T78.2XXA Anaphylactic shock, unspecified, initial encounter; D62 Acute posthemorrhagic anemia; Z20.828 Contact with and (suspected) exposure to other viral communicable diseases; N32.89 Other specified disorders of bladder; M48.04 Spinal stenosis, thoracic region; T78.3XXA Angioneurotic edema, initial encounter; K81.1 Chronic cholecystitis; S00.03XA Contusion of scalp, initial encounter; S42.002A Fracture of unspecified part of left clavicle, initial encounter for closed fracture; W13.2XXA Fall from, out of or through roof, initial encounter; E87.6 Hypokalemia; E83.39 Other disorders of phosphorus metabolism; E80.6 Other disorders of bilirubin metabolism; R33.9 Retention of urine, unspecified; R35.8 Other polyuria; R74.01 Elevation of levels of liver transaminase levels; Y92.009 Unspecified place in unspecified non-institutional (private) residence as the place of occurrence of the external cause
CPT/HCPCS: 36415; 36416; 36430; 62303; 70450; 70486; 70498; 71045; 71260; 72125; 72129; 72141; 72146; 72148; 72170; 74177; 76705; 78227; 80048; 80053; 80076; 81001; 82550; 83605; 83690; 83735; 84100; 85007; 85025; 85027; 85384; 85610; 85730; 86850; 86900; 86901; 87635; 90471; 90715; 93970; 94640; 96374; 96375; A9537; C9113; G0390; J1100; J1200; J1650; J1720; J1885; J1940; J2270; J2370; J2405; J3010; J7050; J7620; J8540; P9016; Q9967; S0028; U0003

== ENCOUNTER 2020-11-23 09:46 | Outpatient (CLI) | payer OTHER ==
--- NOTE | 2020-11-23 10:33 | RAD ---
CERVICAL SPINE 5 VIEWS: HISTORY: Follow-up fracture. T5-T6 fracture. FINDINGS: Limited evaluation of the cervicothoracic junction on the swimmer's view. On the AP projection there is mild multilevel facet arthropathy. On the open-mouth projection, limite d evaluation of the lateral masses of C1 and C2 as well as the odontoid process. On the lateral projection there is no prevertebral soft tissue swelling. Anterior osteophyte at C3 an d C4. Predental space is normal. No cervical spine fracture. IMPRESSION: No cervical spine vertebral body fracture. Transcribed Date/Time: 11/23/2020 11:36 AM
--- NOTE | 2020-11-23 10:38 | RAD ---
Frontal and lateral imaging of the thoracic spine: 11/23/2020 HISTORY: Thoracic spine fractures seen on prior imaging FINDINGS: Technique utilized to assess the thoracic vertebral bodies markedly limits assessment of th e lung parenchyma. There are 2 contiguous burst fractures within the mid thoracic spine which appear to represent the T5 and T6 levels. Detailed assessment is limited secondary to extensive overlying artifact. It is difficult to measure the degree of vertebral body height loss associated with these known T5 and T6 f ractures. The degree of vertebral body height loss appears to have worsened at T5 and appears relatively stable to slightly worsened at T6. No significant anterolisthesis or retrolisthesis is not ed. Numerous additional upper thoracic spine posterior element fractures noted on prior CT cannot be adeq uately assessed on this exam. IMPRESSION: Suboptimal assessment of T5 and T6 fractures. Follow-up CT would be beneficial for full a ssessment.
== END 2020-11-23 09:47 | disposition home or self-care (01) ==
LOC: TBSIIMAG 09:46
PROVIDERS: ATTEND Neurological Surgery
DX: S22.059A Unspecified fracture of T5-T6 vertebra, initial encounter for closed fracture (principal); S12.9XXA Fracture of neck, unspecified, initial encounter
CPT/HCPCS: 72040; 72072

== ENCOUNTER 2021-01-08 12:23 | Outpatient (CLI) | payer OTHER ==
--- NOTE | 2021-01-08 13:25 | CT ---
Exam: CT cervical spine without contrast HISTORY: Previous spinous process fractures. COMPARISON: 10/05/2020 FINDINGS: No craniocervical dissociation. Appropriate alignment of the lateral masses of C1 and C2. Intact odon toid process Appropriate alignment of the facets. Stable anterior osteophyte at C4-C5 and C5-C6 and C6-C7 Soft tissue neck structures: No mass, lymphadenopathy or hematoma. No prevertebral soft tissue swelli ng. Upper mediastinum and lung apices: Unremarkable Central spinal canal: There is stable disc herniations at C2-C3, C3-C4 and C5-C6. Stable central maricel l stenosis. Stable neural foraminal narrowing on the basis of degenerative change. Vertebral bodies: Cervical spine vertebral body height is maintained. No vertebral body fracture. Red emonstration of spinous process fractures at C7, T1. IMPRESSION: 1. No acute fracture of the cervical vertebra. 2. Spinous process fractures involving C7 and T1.
--- NOTE | 2021-01-08 13:33 | CT ---
Exam: Thoracic spine CT without contrast COMPARISON: 10/12/2020 HISTORY: Follow-up thoracic spine fracture. T5 and T6 burst fracture. Paraplegia. FINDINGS: Redemonstration of spinous process fractures at T1, T3 and T4. Redemonstration of bilateral pars frac tures at T5 with perched facets. There is a stable burst fracture at T5 and T6. There is vacuum disc phenomenon at T6-T7. Remainder of the thoracic vertebra demonstrate reservation of vertebral bod y height. Clinical data be slight prominent paraspinal soft tissues at T5 and T6. Incompletely evaluated hypodensity in the right renal cortex. Visualized trachea and central bronchi are patent Limited-the contents of central spinal canal and neural foramina due to technique T5-T6: Severe central canal stenosis, unchanged. Stable significant bilateral foraminal narrowing at T4-T5 and T5-T6. IMPRESSION: Stable posttraumatic changes. Transcribed Date/Time: 01/08/2021 2:09 PM
== END 2021-01-08 12:24 | disposition home or self-care (01) ==
LOC: TBSIIMAG 12:23
PROVIDERS: ATTEND Neurological Surgery
DX: S12.600D Unspecified displaced fracture of seventh cervical vertebra, subsequent encounter for fracture with routine healing (principal); S22.019D Unspecified fracture of first thoracic vertebra, subsequent encounter for fracture with routine healing
CPT/HCPCS: 72125; 72128